=== PATIENT | male | born 1975 | race African-American/Black ===

== ENCOUNTER 2017-03-12 10:51 | Emergency (ER) | payer MEDICARE, MEDICAID ==
[~2017-03-12] VITALS: Ht 182.9 cm; Wt 140.5 kg
[~2017-03-12 10:51] MED LIST: CALC667T PO; MIDO5 PO; OMEP20TA PO
[2017-03-12 10:53] VITALS: BP 118/83; PULSE 95; RESP 18; TEMP 98.2; O2SAT 95
--- NOTE | 2017-03-12 11:26 | PD ---
HPI Chief Complaint: Pain: Acute or Chronic Time Seen by Provider: 11:26 Travel History International Travel<30 days: No Contact w/Intl Traveler<30days: No Traveled to known affect area: No History of Present Illness HPI 41-year-old male with a history of ESRD presents to the emergency department for evaluation of right hand third finger pain for 3 weeks. Patient states that 3 weeks ago he was waving his hands around animatedly speaking when he accidentally banged his 4 fingers on a table. States since then he has had pain and mild swelling in the right third finger PIP joint. States it is a burning pain. States last week he was seen at an urgent care 1 week ago and had an x-ray and was placed on Keflex. States he has 1 more day of his Keflex. States his swelling has improved but he is still having some burning pain in the right third finger PIP joint. Denies fever, chills, numbness or tingling, weakness. No other complaints. PFSH Past Medical History Arthritis: No Asthma: No Atrial Fibrillation: Yes Autoimmune Disease: No Blood Disorders: No Anxiety: No Depression: Yes Heart Rhythm Problems: Yes Cancer: No Cardiovascular Problems: No High Cholesterol: No Chemotherapy: No Chest Pain: No Congestive Heart Failure: Yes COPD: No Cerebrovascular Accident: No Diabetes: No Dialysis: Yes (HEMODIALYSIS ON SAT/SAT/SAT) Diminished Hearing: No Endocrine: No GERD: No Glaucoma: No Genitourinary: No Headaches: No Hepatitis: No Hiatal Hernia: No Hypertension: Yes Immune Disorder: No Kidney Stones: Yes Musculoskeletal: Yes (BACK PAIN) Neurologic: Yes (NERVE DAMAGE LEFT LEG) Psychiatric: No Reproductive: No Respiratory: No Immunizations Current: Yes Migraines: No Myocardial Infarction: No Radiation Therapy: No Renal Failure: No Seizures: No Sleep Apnea: Yes Thyroid Disease: No Ulcer: No Past Surgical History Abdominal Surgery: Yes (HX OF PERITONEAL CATH, RENAL TRANSPLANT WITH REMOVAL) AICD: No Appendectomy: No Arteriovenous Shunt: No Body Medical Devices: AV GRAFT LEFT ARM Cardiac Surgery: No Cholecystectomy: No Ear Surgery: No Endocrine Surgery: No Eye Surgery: No Genitourinary Surgery: Yes (LEFT KIDNEY TRANSPLANT AND REMOVAL) Gynecologic Surgery: No Insulin Pump: No Joint Replacement: No Neurologic Surgery: No Oral Surgery: No Pacemaker: No Thoracic Surgery: No Other Surgery: Yes (GRAFT X 2 LEFT FOREARM / FISTULA) Social History Alcohol Use: Yes (OCCASIONAL) Tobacco Use: No Substance Use: No Allergies-Medications (Allergen,Severity, Reaction): Coded Allergies: No Known Allergies (Verified , 03/12/17) Reported Meds & Prescriptions Reported Meds & Active Scripts Active Review of Systems Except as stated in HPI: all other systems reviewed are Neg Physical Exam Narrative GENERAL: Well-nourished and well-developed pleasant patient in no acute distress who is nontoxic appearing. SKIN: Warm and dry. HEAD: Normocephalic and atraumatic. EYES: No injection, drainage, or hyphema noted. PERRLA. EOMI. ENT: No nasal drainage noted. Oropharynx is clear. NECK: Supple and the trachea is midline. CARDIOVASCULAR: Regular rate and rhythm. RESPIRATORY: Breath sounds are equal bilaterally with no accessory muscle use, wheezing, rhonchi, or crackles. EXTREMITY: Right hand third finger with tenderness to palpation over the PIP joint, decreased range of motion in this joint, no erythema, no warmth. Full range of motion in all other joints. No joint swelling/injury. Normal opposition of thumb. Distal extremity neurovascularly intact with intact two point discrimination. Radial and ulnar pulses palpable in right wrist. NEUROLOGICAL: Awake, alert, and oriented. Normal speech and gait. Cranial nerves are grossly intact. Data Data Last Documented VS Vital Signs Date Time Temp Pulse Resp B/P Pulse Ox O2 Delivery O2 Flow Rate FiO2 03/12/17 10:53 98.2 95 18 118/83 95 Room Air Orders Hand, Complete ([id number]) (03/12/17 11:28) [facility] Medical Decision Making Medical Screen Exam Complete: Yes Emergency Medical Condition: Yes Differential Diagnosis Osteoarthritis versus sprain versus tendon injury versus jammed finger versus other Narrative Course 41-year-old male presents to the emergency department for evaluation of right hand third finger pain for 3 weeks. Patient is afebrile, vital signs are stable. The examination of the right third finger shows decreased range of motion and tenderness but no evidence for infection. We'll do an x-ray and if this is unremarkable the patient can follow-up as an outpatient with hand specialist. X-ray of the right hand is unremarkable. Patient is advised to follow-up as an outpatient with a hand specialist. Patient verbalizes understanding and agreement with treatment plan. Diagnosis Primary Impression: Finger pain, right Referrals: Hand Surgeon Patient Instructions: General Instructions Additional Instructions: Take [id number] tylenol as directed on the box as needed for pain. Follow-up with a hand specialist. Return to the ED for any acute worsening of symptoms. Med/Other Pt SpecificInfo: No Change to Meds Disposition: 01 DISCHARGE HOME Condition: Stable Gaby Pope Mar 12, 2017 11:26
--- NOTE | 2017-03-12 11:56 | RADRPT ---
EXAM DATE/TIME: 03/12/2017 11:23 [facility] COMPARISON: No previous studies available for comparison. INDICATIONS : Right hand pain in third and fifth digit. Patient states he injured his hand by hitting it on a pole. Lacerations on anterior side of third digit with swelling, pain, and burning. MEDICAL HISTORY : None. SURGICAL HISTORY : None. ENCOUNTER: Initial ACUITY: 3 weeks PAIN SCORE: 6/10 LOCATION: Right hand. FINDINGS: Three view examination of the right hand demonstrates no soft tissue swelling, dislocation, or fractu re. The carpal bones appear intact. The interphalangeal and metacarpophalangeal joints are intact. Bony mineralization is normal. Prominent radial and ulnar artery calcifications. CONCLUSION: Prominent vascular calcifications. Romel Charles MD on March 12, 2017 at 11:53 Board Certified Radiologist. This report was verified electronically.
== END 2017-03-12 13:20 | disposition home or self-care (01) ==
LOC: NEPD 10:51
DX: M25.541 Pain in joints of right hand (principal); I48.91 Unspecified atrial fibrillation; I50.9 Heart failure, unspecified; Z99.2 Dependence on renal dialysis; T86.12 Kidney transplant failure; I12.9 Hypertensive chronic kidney disease with stage 1 through stage 4 chronic kidney disease, or unspecified chronic kidney disease; N18.9 Chronic kidney disease, unspecified
CPT/HCPCS: 73130; 99283

== ENCOUNTER 2017-03-21 12:25 | Day surgery (SDC) | payer MEDICARE, MEDICAID ==
[~2017-03-21] VITALS: Ht 182.9 cm; Wt 137.8 kg
[~2017-03-21 12:25] MED LIST changes: -CALC667T PO; +CISATRACURIUM BESYLATE 20 MG/10 ML VIAL IV ONE; -MIDO5 PO; +NEOSTIGMINE 3 MG/3 ML SYR IV ONE; -OMEP20TA PO; +ONDANSETRON HCL 4 MG/2 ML VIAL IV PUSH ONE; +PHENYLEPH/NS 1000 MCG/10 ML SYR IV ONE; +SODIUM CHLOR 0.9% 250 ML INJ 250 ML IV ONE; +SODIUM CHLORID 0.9% 500 ML INJ 500 ML IV ONE
[2017-03-21] MEDS ORDERED: LORA-373 PO (13:06)
[2017-03-21] MEDS ORDERED: MIDO5TAB PO (13:06)
[2017-03-21] MEDS ORDERED: CALC0.5C6 PO (13:06)
[2017-03-21] MEDS ORDERED: CALC1CAP PO (13:06)
[2017-03-21 13:08] VITALS: BP 99/31; PULSE 93; RESP 20; TEMP 97.6; O2SAT 98
[2017-03-21] MEDS: SODIUM CHLORID 0.9% 500 ML IV PRN ×2 (13:10→19:53)
[2017-03-21] MEDS ORDERED: LACTATED RINGER'S 1000 ML IV PRN (13:30)
[2017-03-21] MEDS ORDERED: ceFAZolin 1,000 MG/NS 100 ML IV SCH ×2 (13:30)
[2017-03-21] MEDS ORDERED: CHLORHEXIDINE GLUCONATE 2 % 1 PACK (2 CLOTHS) TOPICAL PRN (13:30)
[2017-03-21] MEDS ORDERED: POVIDONE IODINE 5% (ANTISEPSIS KIT) 4 APPLICATIONS EACH NARE PRN (13:30)
[2017-03-21] MEDS ORDERED: METOPROLOL TARTRATE 25 MG TAB PO PRN (13:30)
[2017-03-21] MEDS ORDERED: INSULIN HUMAN REGULAR 1,000 UNITS/10 ML VIAL SQ PRN (13:30)
[2017-03-21 13:34] LABS: AUTOMATED NEUTROPHIL # 5.9 TH/MM3 (1.8-7.7); BASOPHIL % 0.5 % (0.0-2.0); EOSINOPHIL # 0.3 TH/MM3 (0-0.4); HEMATOCRIT 38.5 % (39.0-51.0); HEMO FLAGS DIFF FINAL; LYMPH % 18.2 % (9.0-44.0); LYMPHOCYTE # 1.5 TH/MM3 (1.0-4.8); MEAN CELL VOLUME 79.7 FL (80.0-100.0); MEAN CORPUSCULAR HEMOGLOBIN 24.9 PG (27.0-34.0); MEAN CORPUSCULAR HGB CONC 31.2 % (32.0-36.0); MONO % 7.8 % (0.0-8.0); NEUT % 69.5 % (16.0-70.0); PLATELET COUNT 207 TH/MM3 (150-450); RED BLOOD COUNT 4.83 MIL/MM3 (4.50-5.90); RED CELL DISTRIBUTION WIDTH 18.8 % (11.6-17.2); WHITE BLOOD COUNT 8.4 TH/MM3 (4.0-11.0)
[2017-03-21 14:03] LABS: BICARBONATE 26.6 MEQ/L (21.0-32.0); POTASSIUM 4.2 MEQ/L (3.5-5.1)
[2017-03-21] MEDS ORDERED: MIDAZOLAM HCL 2 MG/2 ML VIAL ONE (15:50)
[2017-03-21] MEDS ORDERED: FAMOTIDINE 20 MG/2 ML VIAL ONE (15:51)
[2017-03-21] MEDS ORDERED: HEPARIN SODIUM - SQ 10,000 UNITS/ML VIAL ONE (16:02)
[2017-03-21] MEDS ORDERED: BUPIVACAINE HCL PF 0.5% 30 ML VIAL ONE (16:02)
[2017-03-21] MEDS ORDERED: LIDOCAINE 1%/EPINEPHrine 1:100,000 SOLN 20 ML VIAL ONE ×2 (16:03→17:10)
[2017-03-21] MEDS ORDERED: HEPARIN SODIUM - IV 10,000 UNITS/10 ML VIAL ONE (17:10)
[2017-03-21] MEDS ORDERED: PROTAMINE SULFATE 50 MG/5 ML VIAL ONE (17:10)
[2017-03-21] MEDS ORDERED: MORPHINE SULFATE 4 MG/ML INJ ONE (19:45)
[2017-03-21] MEDS ORDERED: DO NOT ADM ANY ANTICOAGULANT DRUGS PRN (20:00)
[2017-03-21] MEDS ORDERED: SODIUM CHLORIDE 0.9% FLUSH 10 ML FLUSH IV FLUSH PRN (20:15)
[2017-03-21] MEDS ORDERED: POTASSIUM CHLOR 20 MEQ 100 ML x 2 BAGS IV PRN (20:15)
[2017-03-21] MEDS ORDERED: MAGNESIUM SULFATE 1 GM/100 ML IV PRN (20:15)
[2017-03-21] MEDS ORDERED: POTASSIUM CHLOR 20 MEQ/100 ML x 1 BAG IV PRN (20:15)
[2017-03-21] MEDS ORDERED: LORazepam 0.5 MG TAB PO PRN (20:15)
[2017-03-21] MEDS ORDERED: POTASSIUM PHOSPHATE 21 MMOL/NS 250 ML IV PRN ×2 (20:15)
[2017-03-21] MEDS ORDERED: ONDANSETRON HCL 4 MG/2 ML VIAL IV PUSH PRN (20:15)
[2017-03-21] MEDS ORDERED: ACETAMINOPHEN/HYDROcodone 325 MG/5 MG TAB PO PRN (20:15)
[2017-03-21] MEDS: SODIUM CHLORIDE 0.9% FLUSH 10 ML FLUSH IV FLUSH SCH (20:56)
[2017-03-21 21:00] VITALS: BP 95/53; PULSE 85; PULSE 86; RESP 18; TEMP 97.4; O2SAT 100
[2017-03-21 22:00] VITALS: PULSE 86
[2017-03-21 23:00] VITALS: PULSE 90
[2017-03-21] MEDS: MORPHINE SULFATE 8 MG/ML INJ IV PUSH PRN (23:15)
[2017-03-22] VITALS (13 sets, daily range): BP systolic 104–125; BP diastolic 48–73; PULSE 79–90; RESP 18–22; TEMP 97.6–98.3; O2SAT 92–99
[2017-03-22] MEDS: MORPHINE SULFATE 8 MG/ML INJ IV PUSH PRN ×2 (03:47→05:40)
[2017-03-22] MEDS: SODIUM CHLORIDE 0.9% FLUSH 10 ML FLUSH IV FLUSH SCH (09:05)
[2017-03-22] MEDS: MIDODRINE 5 MG TAB PO SCH ×2 (09:05→12:31)
--- NOTE | 2017-03-22 17:46 | MP ---
cc: JASS NIX DATE OF SURGERY 03/21/17 PREOPERATIVE DIAGNOSIS Steel ischemia right hand status post right brachial basilic AV fistula creation. POSTOPERATIVE DIAGNOSIS Steel ischemia right hand status post right brachial basilic AV fistula creation. OPERATIVE PROCEDURE Distal revascularization and interval ligation right brachial basilic AV fistula. [place] left greater saphenous vein. SURGEON Laura Nix MD SNOWBOARD INSTRUCTOR JOSE Baxter ANESTHESIA General endotracheal DESCRIPTION OF PROCEDURE With the patient in the supine position and under general endotracheal anesthesia, the left groin, thigh and right upper extremity were prepped with Betadine and draped in a sterile fashion. Appropriate IV antibiotic prophylaxis was administered and, following a protocol time-out, the skin and subcutaneous tissue overlying proximal left greater saphenous vein infiltrated with 1% Xylocaine with epinephrine. A vertical incision was performed along the course of the greater saphenous vein. The vein was isolated from the saphenofemoral junction distally for approximately 8 cm, ligated proximally and distally with 4-0 silk ligatures and divided between ligatures. Skin and subcutaneous tissue proximal and distal proximal and distal to the right brachial basilic AV fistula was infiltrated with 1% Xylocaine with epinephrine. The existing brachial basilic AV fistula scar was re-incised. The brachial artery was mobilized proximal and distal to the existing brachial basilic AV fistula anastomosis and encircled with double loop vessel loops. The artery was occluded distal to the basilic anastomosis, a vertical 4-mm arteriotomy performed along the anteromedial surface and the artery flushed proximally and distally with heparinized saline. The vein graft was reversed, spatulated on end and anastomosed end-to-side to the arteriotomy with continuous 7-0 Prolene. The occluding double loop vessel loops were released reestablishing pulsatile flow within the brachial artery. The brachial artery was occluded proximal to the basilic vein anastomosis. A vertical 4-mm arteriotomy was performed and the artery and fistula regionally heparinized. The vein was spatulated on end and anastomosed end-to-side to the arteriotomy with continuous 7-0 Prolene. The occluding Yasargil clips and double loop vessel loops were removed reestablishing pulsatile flow within the brachial artery as well as into the basilic fistula. The brachial artery was then ligated immediately distal to the basilic vein anastomosis with 4-0 silk. Significant augmentation of Doppler flow within the radial artery was confirmed following the drill procedure. Strict hemostasis was assured. The saphenous vein harvest and right upper extremity incisions were closed with continuous subcutaneous 4-0 Monocryl, continuous subcuticular 5-0 Monocryl, reinforced with Steri-Strips and covered with sterile gauze. Instrument, needle, sponge count correct x2. No operative complications. The patient returned to the recovery room in stable condition having tolerated procedure well. MD SUN Shell/ /10:39 AM /5:41 PM
--- NOTE | 2017-03-23 11:13 | EKG ---
Date Performed: 03/21/2017 Time Performed: 13:32:07 PTAGE: 41 years EKG: Sinus rhythm NORMAL ECG PREVIOUS TRACING : 02/16/2016 05.08 DOCTOR: Ronan Kelley Interpretating Date/Time 03/23/2017 11:06:02
== END 2017-03-22 13:18 | disposition home or self-care (01) ==
LOC: HSDC 12:25 → HCIS 20:46 → HSDC 03-22 13:18
PROVIDERS: ATTEND Surgery Vascular Surgery
DX: T82.898A Other specified complication of vascular prosthetic devices, implants and grafts, initial encounter (principal); I12.0 Hypertensive chronic kidney disease with stage 5 chronic kidney disease or end stage renal disease; N18.6 End stage renal disease; I48.0 Paroxysmal atrial fibrillation; Q61.3 Polycystic kidney, unspecified; K21.9 Gastro-esophageal reflux disease without esophagitis
CPT/HCPCS: 01844; 36838; 80048; 82948; 85025; 93005; J0690; J1644; J2250; J2270; J2370; J2405; J2710; J7040; J7050; J2720

== ENCOUNTER 2017-07-31 17:55 | Emergency (ER) | payer MEDICARE, MEDICAID ==
[~2017-07-31] VITALS: Ht 182.9 cm; Wt 63.0 kg
[~2017-07-31 17:55] MED LIST changes: +CALC0.5C PO; +CALC1CAP PO; -CISATRACURIUM BESYLATE 20 MG/10 ML VIAL IV ONE; +LORA0.5T PO; +MIDO5TAB PO; -NEOSTIGMINE 3 MG/3 ML SYR IV ONE; -ONDANSETRON HCL 4 MG/2 ML VIAL IV PUSH ONE; -PHENYLEPH/NS 1000 MCG/10 ML SYR IV ONE; -SODIUM CHLOR 0.9% 250 ML INJ 250 ML IV ONE; -SODIUM CHLORID 0.9% 500 ML INJ 500 ML IV ONE
[2017-07-31 17:56] VITALS: BP 132/59; PULSE 96; RESP 20; TEMP 98.5; O2SAT 95
--- NOTE | 2017-07-31 18:27 | PD ---
HPI Chief Complaint: Dizziness Time Seen by Provider: 18:19 Travel History International Travel<30 days: No Contact w/Intl Traveler<30days: No Traveled to known affect area: No History of Present Illness HPI 42-year-old male patient with end-stage renal disease on hemodialysis with Dr. Misael Neves, last had dialysis yesterday, presents to the ER today for several days history of intermittent dizziness, states that he felt worse today, felt like he was going to pass out. He states his blood pressures become low. He has been having coughing, runny nose, and cold-like symptoms. He denies any fevers, vomiting, abdominal pain, chest pains, shortness of breath, or any other symptoms. Modifying Factors: None Associated Signs & Symptoms: Dizziness, low blood pressure, coughing Risk Factors: End-stage renal disease on dialysis PFSH Past Medical History Arthritis: No Asthma: No Atrial Fibrillation: Yes Autoimmune Disease: No Blood Disorders: No Anxiety: No Depression: Yes Heart Rhythm Problems: Yes Cancer: No Cardiovascular Problems: No High Cholesterol: No Chemotherapy: No Chest Pain: No Congestive Heart Failure: Yes COPD: No Cerebrovascular Accident: No Diabetes: No Dialysis: Yes (HEMODIALYSIS ON SAT/SAT/SAT) Diminished Hearing: No Endocrine: No GERD: No Glaucoma: No Genitourinary: No Headaches: No Hepatitis: No Hiatal Hernia: No Hypertension: Yes Immune Disorder: No Kidney Stones: Yes Musculoskeletal: Yes (BACK PAIN) Neurologic: Yes (NERVE DAMAGE LEFT LEG) Psychiatric: No Reproductive: No Respiratory: No Immunizations Current: Yes Migraines: No Myocardial Infarction: No Radiation Therapy: No Renal Failure: No Seizures: No Sleep Apnea: Yes Thyroid Disease: Yes Ulcer: No Past Surgical History Abdominal Surgery: Yes (HX OF PERITONEAL CATH, RENAL TRANSPLANT WITH REMOVAL) AICD: No Appendectomy: No Arteriovenous Shunt: No Body Medical Devices: 3 old AV GRAFT Left arm fistula in right arm Cardiac Surgery: No Cholecystectomy: No Ear Surgery: No Endocrine Surgery: No Eye Surgery: No Genitourinary Surgery: Yes (LEFT KIDNEY TRANSPLANT AND REMOVAL) Gynecologic Surgery: No Insulin Pump: No Joint Replacement: No Neurologic Surgery: No Oral Surgery: No Pacemaker: No Thoracic Surgery: No Other Surgery: Yes (GRAFT X 2 LEFT FOREARM / FISTULA) Social History Alcohol Use: Yes (OCCASIONAL) Tobacco Use: No Substance Use: No Allergies-Medications (Allergen,Severity, Reaction): Coded Allergies: No Known Allergies (Verified , 03/12/17) Reported Meds & Prescriptions Reported Meds & Active Scripts Active Reported Lorazepam 0.5 Mg Tab 0.5 Mg PO DAILY PRN Calcitriol 0.5 Mcg Cap 5 Tab PO BID Midodrine 5 Mg Tab 5 Mg PO TID Calcium Acetate (Phosphate Binder) 667 Mg Cap 2,400 Mg PO TID Review of Systems Except as stated in HPI: all other systems reviewed are Neg Physical Exam Narrative GENERAL: Well-developed middle age -Chinese male patient currently in mild distress at awake and oriented 3. SKIN: Focused skin assessment warm/dry. HEAD: Atraumatic. Normocephalic. EYES: Pupils equal and round. No scleral icterus. No injection or drainage. ENT: No nasal bleeding or discharge. Mucous membranes pink and moist. NECK: Trachea midline. No JVD. CARDIOVASCULAR: Regular rate and rhythm. No murmur appreciated. RESPIRATORY: No accessory muscle use. Clear to auscultation. Breath sounds equal bilaterally. GASTROINTESTINAL: Abdomen soft, non-tender, nondistended. Hepatic and splenic margins not palpable. MUSCULOSKELETAL: No obvious deformities. No clubbing. No cyanosis. No edema. NEUROLOGICAL: Awake and alert. No obvious cranial nerve deficits. Motor grossly within normal limits. Normal speech. PSYCHIATRIC: Appropriate mood and affect; insight and judgment normal. Data Data Last Documented VS Vital Signs Date Time Temp Pulse Resp B/P (MAP) Pulse Ox O2 Delivery O2 Flow Rate FiO2 07/31/17 17:56 98.5 96 20 132/59 (83) 95 Room Air Orders Orders Electrocardiogram (07/31/17 18:19) Complete Blood Count With Diff (07/31/17 18:19) Comprehensive Metabolic Panel (07/31/17 18:19) B-Type Natriuretic Peptide (07/31/17 18:19) Ckmb (Isoenzyme) Profile (07/31/17 18:19) Troponin I (07/31/17 18:19) Act Partial Throm Time (Ptt) (07/31/17 18:19) Prothrombin Time / Inr (Pt) (07/31/17 18:19) Urinalysis - C+S If Indicated (07/31/17 18:19) Chest, Single Ap (07/31/17 18:19) Ecg Monitoring (07/31/17 18:19) Iv Access Insert/Monitor (07/31/17 18:19) Oximetry (07/31/17 18:19) Sodium Chloride 0.9% Flush (Ns Flush) (07/31/17 18:30) Blood Culture (07/31/17 18:19) Labs Laboratory Tests Test 07/31/17 18:38 [facility] Medical Decision Making Medical Screen Exam Complete: Yes Emergency Medical Condition: Yes Medical Record Reviewed: Yes Interpretation(s) Last 24 hours Impressions Chest X-Ray 07/31/171818 Signed Impressions: Service Date/Time: Saturday, July 31, 2017 18:30 - CONCLUSION: The lungs are clear. Derian Rao MD Laboratory Tests Test 07/31/17 18:38 Differential Diagnosis URI/viral syndrome/influenza versus dehydration versus metabolic issues versus sepsis versus pneumonia Narrative Course Chest x-ray did not show any signs of acute processes. Lab work was ordered for further evaluation. Physician Communication Physician Communication Case is signed out to Dr. Triana at 7 PM pending workup. Disposition based on workup. Diagnosis Primary Impression: Near syncope Rufino Alvarado MD Jul 31, 2017 18:27
[2017-07-31] MEDS ORDERED: SODIUM CHLORIDE 0.9% FLUSH 10 ML FLUSH IVF PRN (18:30)
--- NOTE | 2017-07-31 18:41 | RADRPT ---
EXAM DATE/TIME: 07/31/2017 18:30 [facility] COMPARISON: CHEST SINGLE AP, February 16, 2016, 5:35. INDICATIONS : Cough, congestion for 1 week. MEDICAL HISTORY : None. SURGICAL HISTORY : None. ENCOUNTER: Initial ACUITY: 1 week PAIN SCORE: 0/10 LOCATION: Bilateral chest FINDINGS: A single view of the chest demonstrates the lungs to be symmetrically aerated without evidence of mas s, infiltrate or effusion. The cardiomediastinal contours are unremarkable. Osseous structures are intact. CONCLUSION: The lungs are clear. Derian Rao MD on July 31, 2017 at 18:39 Board Certified Radiologist. This report was verified electronically.
[2017-07-31 19:10] LABS: AUTOMATED NEUTROPHIL # 8.5 TH/MM3 (1.8-7.7); BASOPHIL # 0.1 TH/MM3 (0-0.2); BASOPHIL % 0.6 % (0.0-2.0); EOSINOPHIL # 0.7 TH/MM3 (0-0.4); EOSINOPHIL % 5.9 % (0.0-4.0); HEMATOCRIT 38.8 % (39.0-51.0); HEMO FLAGS DIFF FINAL; LYMPH % 15.8 % (9.0-44.0); LYMPHOCYTE # 1.9 TH/MM3 (1.0-4.8); MEAN CELL VOLUME 82.6 FL (80.0-100.0); MEAN CORPUSCULAR HEMOGLOBIN 26.2 PG (27.0-34.0); MEAN CORPUSCULAR HGB CONC 31.8 % (32.0-36.0); MONO % 6.1 % (0.0-8.0); NEUT % 71.6 % (16.0-70.0); PLATELET COUNT 229 TH/MM3 (150-450); RED CELL DISTRIBUTION WIDTH 17.8 % (11.6-17.2); WHITE BLOOD COUNT 11.8 TH/MM3 (4.0-11.0)
[2017-07-31 19:22] LABS: APTT (PATIENT) 27.4 SEC (24.3-30.1)
[2017-07-31 20:04] LABS: ALKALINE PHOSPHATASE 73 U/L (45-117); ALT (GPT) 18 U/L (12-78); ANION GAP 12 MEQ/L (5-15); AST (GOT) 14 U/L (15-37); BICARBONATE 26.7 MEQ/L (21.0-32.0); BLOOD UREA NITROGEN 51 MG/DL (7-18); CHLORIDE 94 MEQ/L (98-107); CREATINE KINASE 365 U/L (39-308); GLOMERULAR FILTRATION RATE 5 ML/MIN (>89); POTASSIUM 4.3 MEQ/L (3.5-5.1); SODIUM (NA) 133 MEQ/L (136-145); TOTAL BILIRUBIN ADULT 0.3 MG/DL (0.2-1.0)
[2017-07-31 20:24] LABS: CKMB 1.4 NG/ML (0.5-3.6)
[2017-07-31] MEDS ORDERED: CALCIUM GLUCONATE INJ 1 GM in DEXTROSE 5% IN WATER 100ML INJ 100 ML IV ONE ×2 (21:30)
[2017-07-31] MEDS ORDERED: CALCIUM CARBONATE 500 MG CHEWABLE TAB CHEW ONE (21:30)
--- NOTE | 2017-07-31 21:41 | PD ---
Physical Exam Date Seen by Provider: Jul 31, 2017 Time Seen by Provider: 21:35 Narrative Accepted in transfer of care from Dr Alvarado Data Data Last Documented VS Vital Signs Date Time Temp Pulse Resp B/P (MAP) Pulse Ox O2 Delivery O2 Flow Rate FiO2 07/31/17 17:56 98.5 96 20 132/59 (83) 95 Room Air Orders Orders Electrocardiogram (07/31/17 18:19) Complete Blood Count With Diff (07/31/17 18:19) Comprehensive Metabolic Panel (07/31/17 18:19) B-Type Natriuretic Peptide (07/31/17 18:19) Ckmb (Isoenzyme) Profile (07/31/17 18:19) Troponin I (07/31/17 18:19) Act Partial Throm Time (Ptt) (07/31/17 18:19) Prothrombin Time / Inr (Pt) (07/31/17 18:19) Urinalysis - C+S If Indicated (07/31/17 18:19) Chest, Single Ap (07/31/17 18:19) Ecg Monitoring (07/31/17 18:19) Iv Access Insert/Monitor (07/31/17 18:19) Oximetry (07/31/17 18:19) Sodium Chloride 0.9% Flush (Ns Flush) (07/31/17 18:30) Blood Culture (07/31/17 18:19) CKMB (07/31/17 18:38) CKMB% (07/31/17 18:38) Calcium Gluconate Inj (Calcium Gluconate (07/31/17 21:30) Calcium Carbonate Chew (Tums Chew) (07/31/17 21:30) Labs Laboratory Tests Test 07/31/17 18:38 White Blood Count 11.8 TH/MM3 Red Blood Count 4.70 MIL/MM3 Hemoglobin 12.3 GM/DL Hematocrit 38.8 % Mean Corpuscular Volume 82.6 FL Mean Corpuscular Hemoglobin 26.2 PG Mean Corpuscular Hemoglobin Concent 31.8 % Red Cell Distribution Width 17.8 % Platelet Count 229 TH/MM3 Mean Platelet Volume 8.0 FL Neutrophils (%) (Auto) 71.6 % Lymphocytes (%) (Auto) 15.8 % Monocytes (%) (Auto) 6.1 % Eosinophils (%) (Auto) 5.9 % Basophils (%) (Auto) 0.6 % Neutrophils # (Auto) 8.5 TH/MM3 Lymphocytes # (Auto) 1.9 TH/MM3 Monocytes # (Auto) 0.7 TH/MM3 Eosinophils # (Auto) 0.7 TH/MM3 Basophils # (Auto) 0.1 TH/MM3 CBC Comment DIFF FINAL Differential Comment Prothrombin Time 11.0 SEC Prothromb Time International Ratio 1.0 RATIO Activated Partial Thromboplast Time 27.4 SEC Blood Urea Nitrogen 51 MG/DL Creatinine 12.95 MG/DL Random Glucose 95 MG/DL Total Protein 9.5 GM/DL Albumin 3.4 GM/DL Calcium Level 6.7 MG/DL Alkaline Phosphatase 73 U/L Aspartate Amino Transf (AST/SGOT) 14 U/L Alanine Aminotransferase (ALT/SGPT) 18 U/L Total Bilirubin 0.3 MG/DL Sodium Level 133 MEQ/L Potassium Level 4.3 MEQ/L Chloride Level 94 MEQ/L Carbon Dioxide Level 26.7 MEQ/L Anion Gap 12 MEQ/L Estimat Glomerular Filtration Rate 5 ML/MIN Protein Corrected Calcium MG/DL Total Creatine Kinase 365 U/L Creatine Kinase MB 1.4 NG/ML Creatine Kinase MB % 0.4 % Troponin I LESS THAN 0.02 NG/ML B-Type Natriuretic Peptide 20 PG/ML MDM Medical Record Reviewed: Yes Supervised Visit with VITO: No Interpretation(s) Last Impressions Chest X-Ray 07/31/171818 Signed Impressions: Service Date/Time: Monday, July 31, 2017 18:30 - CONCLUSION: The lungs are clear. Derian Rao MD CBC & BMP Diagram 07/31/17 18:38 Total Protein 9.5 H, Albumin 3.4, Calcium Level 6.7 *L, Alkaline Phosphatase 73 , Aspartate Amino Transf (AST/SGOT) 14 L, Alanine Aminotransferase (ALT/SGPT) 18 , Total Bilirubin 0.3 Vital Signs Date Time Temp Pulse Resp B/P (MAP) Pulse Ox O2 Delivery O2 Flow Rate FiO2 07/31/17 17:56 98.5 96 20 132/59 (83) 95 Room Air Troponin I less than 0.02, not elevated; BNP: 20, not elevated; CK total mildly elevated 345 but MB percent is not elevated at 0.4% Differential Diagnosis Accepted in transfer of care from Dr Alvarado; please refer to her dictation Narrative Course Accepted in transfer of care from Dr Alvarado; follow up labs and disposition Labs grossly within normal range and at patient's baseline except for hypocalcemia; vital signs stable; patient feeling well and voicing no concerns or complaints; patient's lab values discussed with patient in detail with spouse at bedside Patient is aware his lab values and presentation have been discussed with Dr. Brower, covering for his jewelry sorter Dr. Neves per Dr. Brower, recommends patient receive a one-time dose of calcium gluconate IV as well as Derian 1000 mg prior to being discharge and patient will need to follow closely with his jewelry sorter as well as continue his dialysis as scheduled and make sure that he definitely takes his calcium replacement It is 9:40 PM patient is stable for outpatient management after receiving calcium replacement and again extensive conversation with patient with spouse at bedside regarding compliance with his outpatient calcium replacement. Patient understands recommendations and is requesting discharge to home. Diagnosis Primary Impression: Near syncope Additional Impression: Hypocalcemia Referrals: Electromechanical Equipment Assembler 1 day Primary Care Physician 1 day Patient Instructions: General Instructions Additional Instruction: Follow-up with Dr. Neves as scheduled Continue dialysis as planned Make sure you take calcium replacement as prescribed Return to the emergency for for any concerns or change in condition Med/Other Pt SpecificInfo: No Change to Meds Disposition: 01 DISCHARGE HOME Condition: Stable Liliam Triana MD Jul 31, 2017 21:41
--- NOTE | 2017-08-01 10:35 | EKG ---
Date Performed: 07/31/2017 Time Performed: 18:47:29 PTAGE: 42 years EKG: Sinus rhythm LOW QRS VOLTAGE IN EXTREMITY LEADS BORDERLINE ECG NO PREVIOUS TRACING DOCTOR: Hunter Morris Interpretating Date/Time 08/01/2017 10:34:55
== END 2017-07-31 23:42 | disposition home or self-care (01) ==
LOC: NEPC 17:55
DX: R55 Syncope and collapse (principal); E83.51 Hypocalcemia; I13.2 Hypertensive heart and chronic kidney disease with heart failure and with stage 5 chronic kidney disease, or end stage renal disease; I50.9 Heart failure, unspecified; N18.6 End stage renal disease; Z99.2 Dependence on renal dialysis
CPT/HCPCS: 71010; 80053; 82550; 82552; 83880; 84484; 85025; 85610; 85730; 87040; 93005; 96365; 99285; J0610

== ENCOUNTER 2017-12-04 19:30 | Inpatient (IN) | payer MEDICARE, MEDICAID ==
[~2017-12-04] VITALS: Ht 182.9 cm; Wt 150.0 kg
[2017-12-04 20:06] VITALS: BP 137/61; PULSE 102; RESP 18; TEMP 99.3; O2SAT 97
--- NOTE | 2017-12-04 23:49 | PD ---
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 He comes in because he is having dark melena-like stool for the last few days. He said a few years ago he had blood from the rectum and return colonoscopy was done as an outpatient and they found that he had diverticuli . patient now reports mild epigastric pain and heartburn off and on for the last few days. He does take omeprazole daily without relief of the pain and his stool is black per patient. He is morbidly obese end-stage renal, renal failure congential per pt no DM Pt has history of diverticuli ,, Now pt coming in with black stools that are tarry. pt denies orthopnea no syncope no SOB , PFSH Past Medical History Arthritis: No Asthma: No Atrial Fibrillation: Yes Autoimmune Disease: No Blood Disorders: No Anxiety: No Depression: Yes Heart Rhythm Problems: Yes Cancer: No Cardiovascular Problems: No High Cholesterol: No Chemotherapy: No Chest Pain: No Congestive Heart Failure: Yes COPD: No Cerebrovascular Accident: No Diabetes: No Dialysis: Yes (HEMODIALYSIS ON SAT/SAT/SAT) Diminished Hearing: No Endocrine: No GERD: No Glaucoma: No Genitourinary: No Headaches: No Hepatitis: No Hiatal Hernia: No Hypertension: Yes Immune Disorder: No Kidney Stones: Yes Musculoskeletal: Yes (BACK PAIN) Neurologic: Yes (NERVE DAMAGE LEFT LEG) Psychiatric: No Reproductive: No Respiratory: No Immunizations Current: Yes Migraines: No Myocardial Infarction: No Radiation Therapy: No Renal Failure: No Seizures: No Sleep Apnea: Yes Thyroid Disease: Yes Ulcer: No Past Surgical History Abdominal Surgery: Yes (HX OF PERITONEAL CATH, RENAL TRANSPLANT WITH REMOVAL) AICD: No Appendectomy: No Arteriovenous Shunt: No Body Medical Devices: 3 old AV GRAFT Left arm fistula in right arm Cardiac Surgery: No Cholecystectomy: No Ear Surgery: No Endocrine Surgery: No Eye Surgery: No Genitourinary Surgery: Yes (LEFT KIDNEY TRANSPLANT AND REMOVAL) Gynecologic Surgery: No Insulin Pump: No Joint Replacement: No Neurologic Surgery: No Oral Surgery: No Pacemaker: No Thoracic Surgery: No Other Surgery: Yes (GRAFT X 2 LEFT FOREARM / FISTULA) Social History Alcohol Use: Yes (OCCASIONAL) Tobacco Use: No Substance Use: No Allergies-Medications (Allergen,Severity, Reaction): Coded Allergies: No Known Allergies (Verified Allergy, Unknown, 12/05/17) Reported Meds & Prescriptions Reported Meds & Active Scripts Active Reported Lorazepam 0.5 Mg Tab 0.5 Mg PO DAILY PRN Calcitriol 0.5 Mcg Cap 5 Tab PO BID Midodrine 5 Mg Tab 5 Mg PO TID Calcium Acetate (Phosphate Binder) 667 Mg Cap 2,400 Mg PO TID Review of Systems Except as stated in HPI: all other systems reviewed are Neg Gastrointestinal: Positive: Abdominal Pain, Changes in Bowel Habits (melena ) Physical Exam Narrative GENERAL: Pt is morbidly obese , pt alert OX3 , no distress SKIN: Warm and dry. HEAD: Atraumatic. Normocephalic. EYES: Pupils equal and round. No scleral icterus. No injection or drainage. ENT: No nasal bleeding or discharge. Mucous membranes pink and moist. NECK: Trachea midline. No JVD. CARDIOVASCULAR: Regular rate and rhythm. RESPIRATORY: No accessory muscle use. Clear to auscultation. Breath sounds equal bilaterally. GASTROINTESTINAL: Abdomen obese, soft, non-tender, nondistended. Hepatic and splenic margins not palpable. RECTAL dark stool guaiac positive MUSCULOSKELETAL: Extremities AV fistula in right humeral area volar surface ....without clubbing, cyanosis, or edema. No obvious deformities. NEUROLOGICAL: Awake and alert. No obvious cranial nerve deficits. Motor grossly within normal limits. Five out of 5 muscle strength in the arms and legs. Normal speech. PSYCHIATRIC: Appropriate mood and affect; insight and judgment normal. Data Data Last Documented VS Vital Signs Date Time Temp Pulse Resp B/P (MAP) Pulse Ox O2 Delivery O2 Flow Rate FiO2 12/05/17 02:31 89 18 122/55 (77) 95 12/04/17 20:06 99.3 Orders Orders Complete Blood Count With Diff (12/04/17 23:27) Comprehensive Metabolic Panel (12/04/17 23:27) Type And Screen (12/04/17 23:27) Prothrombin Time / Inr (Pt) (12/04/17 23:28) Pantoprazole Inj (Protonix Inj) (12/05/17 02:00) Famotidine Inj (Pepcid Inj) (12/05/17 02:00) Place In Observation (12/05/17 ) Vital Signs (Adult) Q4H (12/05/17 03:16) Activity Oob Ad Sylvia (12/05/17 03:16) Horologist Apprentice / Telemetry .CONTINUOUS (12/05/17 03:16) Intake + Output MANDEEP.QSHIFT (12/05/17 03:16) Sodium Chlor 0.9% 1000 Ml Inj (Ns 1000 M (12/05/17 03:16) Sodium Chloride 0.9% Flush (Ns Flush) (12/05/17 03:30) Sodium Chloride 0.9% Flush (Ns Flush) (12/05/17 09:00) Ondansetron Inj (Zofran Inj) (12/05/17 03:30) Basic Metabolic Panel (Bmp) (12/06/17 06:00) Complete Blood Count With Diff (12/06/17 06:00) Pt Request For Service (12/05/17 03:16) Case Management Consult (12/05/17 03:16) Scd Bilateral/Knee High MANDEEP.BID (12/05/17 03:16) Naloxone Inj (Narcan Inj) (12/05/17 03:30) Hgb & Hct (12/05/17 06:00) Hgb & Hct (12/05/17 12:00) Hgb & Hct (12/05/17 18:00) Pantoprazole Inj (Protonix Inj) (12/05/17 14:00) Calcium Gluconate Inj (Calcium Gluconate (12/05/17 03:30) Consult Gastroenterology (12/05/17 ) Admit Order (Ed Use Only) (12/05/17 04:05) Labs Laboratory Tests Test 12/04/17 23:34 White Blood Count 8.6 TH/MM3 Red Blood Count 3.53 MIL/MM3 Hemoglobin 9.0 GM/DL Hematocrit 28.7 % Mean Corpuscular Volume 81.3 FL Mean Corpuscular Hemoglobin 25.5 PG Mean Corpuscular Hemoglobin Concent 31.4 % Red Cell Distribution Width 17.4 % Platelet Count 274 TH/MM3 Mean Platelet Volume 7.8 FL Neutrophils (%) (Auto) 77.6 % Lymphocytes (%) (Auto) 11.1 % Monocytes (%) (Auto) 6.9 % Eosinophils (%) (Auto) 3.9 % Basophils (%) (Auto) 0.5 % Neutrophils # (Auto) 6.7 TH/MM3 Lymphocytes # (Auto) 1.0 TH/MM3 Monocytes # (Auto) 0.6 TH/MM3 Eosinophils # (Auto) 0.3 TH/MM3 Basophils # (Auto) 0.0 TH/MM3 CBC Comment DIFF FINAL Differential Comment Prothrombin Time 10.6 SEC Prothromb Time International Ratio 1.0 RATIO Blood Urea Nitrogen 30 MG/DL Creatinine 9.83 MG/DL Random Glucose 109 MG/DL Total Protein 8.7 GM/DL Albumin 3.5 GM/DL Calcium Level 7.3 MG/DL Alkaline Phosphatase 65 U/L Aspartate Amino Transf (AST/SGOT) 22 U/L Alanine Aminotransferase (ALT/SGPT) 17 U/L Total Bilirubin 0.3 MG/DL Sodium Level 136 MEQ/L Potassium Level 4.3 MEQ/L Chloride Level 97 MEQ/L Carbon Dioxide Level 31.8 MEQ/L Anion Gap 7 MEQ/L Estimat Glomerular Filtration Rate 7 ML/MIN Protein Corrected Calcium MG/DL [facility] Medical Decision Making Medical Screen Exam Complete: Yes Emergency Medical Condition: Yes Differential Diagnosis rectal bleeding from oozing gastric ulcer vs blood from colonic mass a/v malformation vs duodenal ulcer , other Narrative Course H and H and last Hematocrit few years ago was 38 pt needs admit for protonix drip and GI endoscopy in AM admit meds GI consult. Pt stable enough for admit to floor and close GI consult and EGD , BP on admission 120/56 HR 89 Diagnosis Primary Impression: GI bleed Qualified Codes: K92.1 - Melena Admitting Information Admitting Physician Requests: Admit Prasanth Bruno MD Dec 04, 2017 23:49
[2017-12-04 23:54] LABS: PROTHROMBIN TIME - PATIENT 10.6 SEC (9.8-11.6)
[2017-12-05] VITALS (10 sets, daily range): BP systolic 96–150; BP diastolic 44–68; PULSE 78–89; RESP 16–20; TEMP 97.4–98.3; O2SAT 94–100
[2017-12-05 00:05] LABS: AUTOMATED NEUTROPHIL # 6.7 TH/MM3 (1.8-7.7); BASOPHIL % 0.5 % (0.0-2.0); EOSINOPHIL # 0.3 TH/MM3 (0-0.4); EOSINOPHIL % 3.9 % (0.0-4.0); HEMATOCRIT 28.7 % (39.0-51.0); LYMPH % 11.1 % (9.0-44.0); MEAN CELL VOLUME 81.3 FL (80.0-100.0); MEAN CORPUSCULAR HEMOGLOBIN 25.5 PG (27.0-34.0); MEAN CORPUSCULAR HGB CONC 31.4 % (32.0-36.0); MEAN PLATELET VOLUME 7.8 FL (7.0-11.0); MONO % 6.9 % (0.0-8.0); MONOCYTE # 0.6 TH/MM3 (0-0.9); NEUT % 77.6 % (16.0-70.0); PLATELET COUNT 274 TH/MM3 (150-450); RED BLOOD COUNT 3.53 MIL/MM3 (4.50-5.90); RED CELL DISTRIBUTION WIDTH 17.4 % (11.6-17.2); WHITE BLOOD COUNT 8.6 TH/MM3 (4.0-11.0)
[2017-12-05 00:22] LABS: ALBUMIN 3.5 GM/DL (3.4-5.0); BICARBONATE 31.8 MEQ/L (21.0-32.0); CREATININE 9.83 MG/DL (0.60-1.30); TOTAL BILIRUBIN ADULT 0.3 MG/DL (0.2-1.0); TOTAL PROTEIN 8.7 GM/DL (6.4-8.2)
[2017-12-05 00:25] LABS: CALCIUM 7.3 MG/DL (8.5-10.1)
[2017-12-05] MEDS ORDERED: PANTOPRAZOLE SODIUM 40 MG VIAL IV PUSH ONE (02:00)
[2017-12-05] MEDS ORDERED: FAMOTIDINE 20 MG/2 ML VIAL IV PUSH SCH (02:00)
[2017-12-05] MEDS ORDERED: SODIUM CHLOR 0.9% 1000 ML INJ 1,000 ML IV SCH (03:16)
[2017-12-05] MEDS ORDERED: CALCIUM GLUCONATE INJ 1 GM in DEXTROSE 5% IN WATER 100ML INJ 100 ML IV ONE ×2 (03:30)
[2017-12-05] MEDS ORDERED: NALOXONE HCL 0.4 MG/ML AMP IV PUSH PRN (03:30)
[2017-12-05] MEDS ORDERED: ONDANSETRON HCL 4 MG/2 ML VIAL IVP PRN (03:30)
[2017-12-05] MEDS ORDERED: LORazepam 0.5 MG TAB PO PRN (04:45)
--- NOTE | 2017-12-05 05:19 | HHI.HP ---
[facility] Service [facility] Primary Care Physician Gary Mtz MD Admission Diagnosis GI bleed Diagnoses: Travel History International Travel<30 Days: No Contact w/Intl Traveler <30 Da: No Traveled to Known Affected Are: No History of Present Illness 42-year-old male with end-stage renal disease on dialysis, chronic back pain and neuropathy presents to the emergency department for evaluation of black stools. The patient reports that he has had black stools for approximately the last 1-1/2 months. He states that he has been having worsening fatigue 1 week. He denies any shortness of breath. No chest pain. The patient states he had something similar in the past, several years ago and he had an outpatient colonoscopy which did not reveal any source of bleeding. He was Hemoccult positive in the emergency department. No nausea/vomiting/diarrhea. No abdominal pain. No lateralizing signs/symptoms. Review of Systems Except as stated in HPI: all other systems reviewed are Neg Past Family Social History Past Medical History End-stage renal disease on dialysis Saturday Chronic back pain Neuropathy Past Surgical History Parathyroidectomy Kidney transplant with subsequent removal of transplanted kidney Fistula 4 Reported Medications Reported Meds & Active Scripts Active Reported Lorazepam 0.5 Mg Tab 0.5 Mg PO DAILY PRN Calcitriol 0.5 Mcg Cap 5 Tab PO BID Midodrine 5 Mg Tab 5 Mg PO TID Calcium Acetate (Phosphate Binder) 667 Mg Cap 2,400 Mg PO TID Allergies: Coded Allergies: No Known Allergies (Verified Allergy, Unknown, 12/05/17) Family History Negative for CAD/DM Social History Occasional alcohol. Denies tobacco and illicit drugs Physical Exam Vital Signs Vital Signs Date Time Temp Pulse Resp B/P (MAP) Pulse Ox O2 Delivery O2 Flow Rate FiO2 12/05/17 02:31 89 18 122/55 (77) 95 12/04/17 20:06 99.3 102 18 137/61 (86) 97 Physical Exam GENERAL: Obese, male lying in bed SKIN: No rashes, ecchymoses or lesions. Cool and dry. HEAD: Atraumatic. Normocephalic. No temporal or scalp tenderness. EYES: Pupils equal round and reactive. Extraocular motions intact. No scleral icterus. No injection or drainage. ENT: Nose without bleeding, purulent drainage or septal hematoma. Throat without erythema, tonsillar hypertrophy or exudate. Uvula midline. Airway patent. NECK: Trachea midline. No JVD or lymphadenopathy. Supple, nontender, no meningeal signs. CARDIOVASCULAR: Regular rate and rhythm without murmurs, gallops, or rubs. RESPIRATORY: Clear to auscultation. Breath sounds equal bilaterally. No wheezes , rales, or rhonchi. GASTROINTESTINAL: Abdomen soft, non-tender, nondistended. No hepato-splenomegaly , or palpable masses. No guarding. MUSCULOSKELETAL: Extremities without clubbing, cyanosis, or edema. No joint tenderness, effusion, or edema noted. No calf tenderness. NEUROLOGICAL: Awake and alert. Cranial nerves II through XII intact. Motor and sensory grossly within normal limits. Normal speech. Laboratory Laboratory Tests Test 12/04/17 23:34 White Blood Count 8.6 Red Blood Count 3.53 Hemoglobin 9.0 Hematocrit 28.7 Mean Corpuscular Volume 81.3 Mean Corpuscular Hemoglobin 25.5 Mean Corpuscular Hemoglobin Concent 31.4 Red Cell Distribution Width 17.4 Platelet Count 274 Mean Platelet Volume 7.8 Neutrophils (%) (Auto) 77.6 Lymphocytes (%) (Auto) 11.1 Monocytes (%) (Auto) 6.9 Eosinophils (%) (Auto) 3.9 Basophils (%) (Auto) 0.5 Neutrophils # (Auto) 6.7 Lymphocytes # (Auto) 1.0 Monocytes # (Auto) 0.6 Eosinophils # (Auto) 0.3 Basophils # (Auto) 0.0 CBC Comment DIFF FINAL Differential Comment Prothrombin Time 10.6 Prothromb Time International Ratio 1.0 Blood Urea Nitrogen 30 Creatinine 9.83 Random Glucose 109 Total Protein 8.7 Albumin 3.5 Calcium Level 7.3 Alkaline Phosphatase 65 Aspartate Amino Transf (AST/SGOT) 22 Alanine Aminotransferase (ALT/SGPT) 17 Total Bilirubin 0.3 Sodium Level 136 Potassium Level 4.3 Chloride Level 97 Carbon Dioxide Level 31.8 Anion Gap 7 Estimat Glomerular Filtration Rate 7 Protein Corrected Calcium Result Diagram: 12/04/17 2334 12/04/17 2334 Caprini VTE Risk Assessment Caprini VTE Risk Assessment: No/Low Risk (score <= 1) Caprini Risk Assessment Model Point Value = 1 Point Value = 2 Point Value = 3 Point Value = 5 Age 41-60 Minor surgery BMI > 25 kg/m2 Swollen legs Varicose veins or History of unexplained or recurrent spontaneous Oral contraceptives or hormone replacement Sepsis (< 1 month) Serious lung disease, including pneumonia (< 1 month) Abnormal pulmonary function Acute myocardial infarction Congestive heart failure (< 1 month) History of inflammatory bowel disease Medical patient at bed rest Age 61-74 Arthroscopic surgery Major open surgery (> 45 min) Laparoscopic surgery (> 45 min) Malignancy Confined to bed (> 72 hours) Immobilizing plaster cast Central venous access Age >= 75 History of VTE Family history of VTE Factor V Leiden Prothrombin [id number] Lupus anticoagulant Anticardiolipin antibodies Elevated serum homocysteine Heparin-induced thrombocytopenia Other congenital or acquired thrombophilia Stroke (< 1 month) Elective arthroplasty Hip, pelvis, or leg fracture Acute spinal cord injury (< 1 month) Prophylaxis Regimen Total Risk Factor Score Risk Level Prophylaxis Regimen 0-1 Low Early ambulation 2 Moderate Order ONE of the following: *Sequential Compression Device (SCD) *Heparin 5000 units SQ BID 3-4 Higher Order ONE of the following medications: *Heparin 5000 units SQ TID *Enoxaparin/Lovenox 40 mg SQ daily (WT < 150 kg, CrCl > 30 mL/min) *Enoxaparin/Lovenox 30 mg SQ daily (WT < 150 kg, CrCl > 10-29 mL/min) *Enoxaparin/Lovenox 30 mg SQ BID (WT < 150 kg, CrCl > 30 mL/min) AND/OR *Sequential Compression Device (SCD) 5 or more Highest Order ONE of the following medications: *Heparin 5000 units SQ TID (Preferred with Epidurals) *Enoxaparin/Lovenox 40 mg SQ daily (WT < 150 kg, CrCl > 30 mL/min) *Enoxaparin/Lovenox 30 mg SQ daily (WT < 150 kg, CrCl > 10-29 mL/min) *Enoxaparin/Lovenox 30 mg SQ BID (WT < 150 kg, CrCl > 30 mL/min) AND *Sequential Compression Device (SCD) Assessment and Plan Assessment and Plan Assessment/plan: 1. GI bleed Patient with history of dark, tarry stools H&H 9.0/28.7, baseline unknown Serial H&H IV Protonix Nothing by mouth Gastroenterology consulted, appreciate recommendations Transfuse as needed 2. End-stage renal disease on dialysis Dialysis [facility] Patient's cement rubber, Dr. Neves, consulted, appreciate assistance Continue home medications FEN NPO Electrolytes: per Nephrology Katelin Mccarthy MD Dec 05, 2017 05:19
[2017-12-05 07:35] LABS: HEMATOCRIT 26.7 % (39.0-51.0); HEMOGLOBIN 8.4 GM/DL (13.0-17.0)
[2017-12-05] MEDS: SODIUM CHLORIDE 0.9% FLUSH 10 ML FLUSH IV FLUSH SCH ×2 (09:00→20:21)
[2017-12-05] MEDS: CALCIUM ACETATE 667 MG CAP PO SCH ×2 (09:00→13:00)
[2017-12-05] MEDS: CALCITRIOL 0.25 MCG CAP PO SCH ×2 (09:00→22:15)
[2017-12-05] MEDS ORDERED: SODIUM CHLOR 0.9% 1000 ML INJ 1,000 ML IV PRN (09:04)
[2017-12-05] MEDS ORDERED: SODIUM CHLOR 0.9% 1000 ML INJ 1,000 ML OTHER PRN ×2 (09:04)
[2017-12-05] MEDS ORDERED: ONDANSETRON HCL 4 MG/2 ML VIAL IV PUSH PRN (09:15)
[2017-12-05] MEDS ORDERED: NITROGLYCERIN 0.4 MG SL 25 TABS/BTL SL PRN (09:15)
[2017-12-05] MEDS ORDERED: GENTAMICIN SULFATE 20 MG/2 ML VIAL OTHER PRN (09:15)
[2017-12-05] MEDS ORDERED: EPOETIN ALFA 10,000 UNITS/ML VIAL IV PUSH PRN (09:15)
[2017-12-05] MEDS ORDERED: ALBUMIN 25% INJ 100 ML IV PRN (09:15)
[2017-12-05] MEDS ORDERED: SODIUM CHLORIDE 0.9% FLUSH 10 ML FLUSH IV FLUSH PRN (09:15)
[2017-12-05] MEDS ORDERED: HEPARIN SODIUM - IV 10,000 UNITS/10 ML VIAL PRN (09:15)
[2017-12-05] MEDS ORDERED: GELATIN 12 MM/7 MM FOAM TOP PRN (09:15)
[2017-12-05] MEDS ORDERED: MANNITOL 12.5 GM/50 ML VIAL IV PRN (09:15)
[2017-12-05] MEDS ORDERED: diphenhydrAMINE HCL 25 MG CAP PO PRN (09:15)
[2017-12-05] MEDS ORDERED: cloNIDine HCL 0.1 MG TAB PO PRN (09:15)
[2017-12-05] MEDS ORDERED: HEPARIN SODIUM - IV 10,000 UNITS/10 ML VIAL IV FLUSH PRN (09:15)
[2017-12-05] MEDS ORDERED: ACETAMINOPHEN 325 MG TAB PO PRN (09:15)
[2017-12-05] MEDS: MIDODRINE 5 MG TAB PO SCH ×3 (09:56→18:00)
--- NOTE | 2017-12-05 10:00 | PD.CONS ---
HPI History of Present Illness This is a 42 year old with PMH significant for ESRD S/P previous kidney transplant for renal defect and currently on HD MWF, chronic back pain, and neuropathy. Our service has been consulted to evaluate pt for reports of melena with occult positive stool in ER. Pt presented to the ER last night with complaints of black, tarry stools for the past month and a half. However, states that sometimes he also has dark red stools and that this seems to happen intermittently over the past month and a half. Has approx 4-5 stools a day. Also notices blood on the toilet paper when he wipes. Pt complaining of fatigue that has been progressively getting worse over the past week. Also complaining of intermittent nausea, denies emesis. Complaining of abdominal pain, states has pain in both sides and lower abdominal pain, described as cramping and seems to be related to his BMs. Takes Omeprazole for acid reflux but has also been having to take Tums OTC. Denies dysphagia, odynophagia, weight loss. Does report taking Aleve almost daily for chronic hand pain. Admits to occasional ETOH, Denies smoking and illicit drug use. Last colonoscopy done by Dr. Adams a few years ago, thinks it was a normal exam, has not been to his office since procedure. Does not think he has ever had EGD. (Suzi Arriaga) PFSH Past Medical History End-stage renal disease on dialysis Saturday Chronic back pain Neuropathy Past Surgical History Parathyroidectomy Kidney transplant with subsequent removal of transplanted kidney Fistula 4 Skin graft (Suzi Arriaga) Coded Allergies: No Known Allergies (Verified Allergy, Unknown, 12/05/17) Family History Negative for CAD/DM Social History Occasional alcohol. Denies tobacco and illicit drugs (Suzi Arriaga) Review of Systems Gastrointestinal: COMPLAINS OF: Abdominal pain, Black stools, Bloody stools, Diarrhea, Nausea, Difficulty Swallowing, Heartburn, DENIES: Constipation, Vomiting, Odynophagia, Swelling of Abdomen, Hematemesis (Suzi Arriaga) GI Exam Vitals I&O Vital Signs Date Time Temp Pulse Resp B/P (MAP) Pulse Ox O2 Delivery O2 Flow Rate FiO2 12/05/17 08:35 89 18 133/53 (79) 97 Room Air 12/05/17 06:00 78 16 120/56 (77) 95 Room Air 12/05/17 02:31 89 18 122/55 (77) 95 12/04/17 20:06 99.3 102 18 137/61 (86) 97 I/O 12/04/17 12/04/17 12/04/17 12/05/17 12/05/17 12/05/17 07:00 15:00 23:00 07:00 15:00 23:00 Intake Total 110 ml Balance 110 ml Intake IV Total 110 ml Laboratory Test 12/04/17 23:34 12/05/17 07:17 White Blood Count 8.6 TH/MM3 Red Blood Count 3.53 MIL/MM3 Hemoglobin 9.0 GM/DL 8.4 GM/DL Hematocrit 28.7 % 26.7 % Mean Corpuscular Volume 81.3 FL Mean Corpuscular Hemoglobin 25.5 PG Mean Corpuscular Hemoglobin Concent 31.4 % Red Cell Distribution Width 17.4 % Platelet Count 274 TH/MM3 Mean Platelet Volume 7.8 FL Neutrophils (%) (Auto) 77.6 % Lymphocytes (%) (Auto) 11.1 % Monocytes (%) (Auto) 6.9 % Eosinophils (%) (Auto) 3.9 % Basophils (%) (Auto) 0.5 % Neutrophils # (Auto) 6.7 TH/MM3 Lymphocytes # (Auto) 1.0 TH/MM3 Monocytes # (Auto) 0.6 TH/MM3 Eosinophils # (Auto) 0.3 TH/MM3 Basophils # (Auto) 0.0 TH/MM3 CBC Comment DIFF FINAL Differential Comment Prothrombin Time 10.6 SEC Prothromb Time International Ratio 1.0 RATIO Blood Urea Nitrogen 30 MG/DL Creatinine 9.83 MG/DL Random Glucose 109 MG/DL Total Protein 8.7 GM/DL Albumin 3.5 GM/DL Calcium Level 7.3 MG/DL Alkaline Phosphatase 65 U/L Aspartate Amino Transf (AST/SGOT) 22 U/L Alanine Aminotransferase (ALT/SGPT) 17 U/L Total Bilirubin 0.3 MG/DL Sodium Level 136 MEQ/L Potassium Level 4.3 MEQ/L Chloride Level 97 MEQ/L Carbon Dioxide Level 31.8 MEQ/L Anion Gap 7 MEQ/L Estimat Glomerular Filtration Rate 7 ML/MIN Protein Corrected Calcium MG/DL Physical Examination HEENT: Normocephalic; atraumatic CHEST: Even/unlabored CARDIAC: RRR ABDOMEN: Obese, firm, nontender, bowel sounds active SKIN: Normal; no rash; no jaundice. SUPERVISOR POLICY CHANGE CLERKS: No focal deficits; alert and oriented times three. (Suzi Arriaga) Assessment and Plan Plan Assessment: - GIB with occult positive stool in ER. Pt reports melena for the past month and a half but also states has had intermittent dark red blood in stool as well as BRB on toilet paper when he wipes. H/H currently 8.4/26.7- labs from Jul 2017 12.3/38.8. Last colonoscopy was a few years ago by Dr. Adams states normal exam, does not follow up in his office anymore. Does not think he has ever had EGD. Reports almost daily Aleve for hand pain. - Nausea, denies emesis - Acid reflux- Takes Omeprazole, has also been having to take OTC Tums for relief - ESRD on HD MWF, hx kidney transplant- born with congenital defect Addendum- Repeat H/H from 1500 6.2/20.4, 2 U PRBCs ordered to be given now. Discussed with Dr. Sams. Discussed with Dr. Deleon Plan: EGD/colonoscopy tomorrow Obtain consent Clear liquids today GoLytely prep NPO after MN Protonix Monitor H/H Transfuse per attending Further recommendations based on findings of above Pt has been seen and examined by myself and Dr. Deleon and this note is written on his behalf (Suzi Arriaga) Physician Comments Seen and examined Agree with above Continue with current supportive care Monitor labs Plan for an EGD with colonoscopy tomorrow (Jake Deleon MD) Suzi Arriaga Dec 05, 2017 10:00 Jake Deleon MD Dec 05, 2017 21:37
--- NOTE | 2017-12-05 10:07 | HHI.PR ---
Addendum to Inpatient Note Addendum Reason: Additional Documentation Additional Information The patient has been seen and examined by me. Patient is resting comfortably in bed. Denies any nausea or vomiting. Denies abdominal pain. Abdomen is soft , nontender nondistended. Hemoglobin slightly lower from a pleasure to a 0.4. Continue to monitor hemoglobin and transfuse as needed for hemoglobin less than 8 if active bleeding of less than 7. There is no bleeding. Transfuse if symptomatic anemia. GI consulted, planned EGD for/colonoscopy tomorrow. Unclear liquids, diet as per GI recommendations, nothing by mouth after midnight. Osmany Bonilla MD Dec 05, 2017 10:07
--- NOTE | 2017-12-05 10:26 | PD.CONS ---
HPI Service Nephrology Consult Requested By Shari Reason for Consult ESRD on HD Primary Care Physician Gary Mtz MD History of Present Illness This is a 42 y/o AAM patient maintained on HD [facility]. He had full treatment yesterday with 4.3 Liters fluid removal. He came to ER for evaluation of dark stools x 2 weeks. he associates this with mild abdominal pain during BMs. He is anemic on arrival, hx of anemia of chronic disease. PMH hypotension on midodrine, hx of hypocalcemia s/p parathyroidectomy. He has AVF right arm, is patent. We were consulted for dialysis mangement. He is a full code. (Yasmeen An) Review of Systems Constitutional: COMPLAINS OF: Fatigue, DENIES: Weight gain, Change in appetite Cardiovascular: DENIES: Chest pain, Lower Extremity Edema Gastrointestinal: COMPLAINS OF: Abdominal pain, Black stools, Nausea, DENIES: Bloody stools, Constipation, Diarrhea, Difficulty Swallowing (Yasmeen An) Past Family Social History Allergies: Coded Allergies: No Known Allergies (Verified Allergy, Unknown, 12/05/17) Past Medical History ESRD on HD MWF Anemia of chronic disease Intradialytic hypotension Hypocalcemia s/p parathyroidectomy Obesity Past Surgical History Parathyroidectomy Kidney transplant with subsequent removal of transplanted kidney AVF surgery 4 Reported Medications Lorazepam 0.5 Mg Tab 0.5 Mg PO DAILY PRN Calcitriol 0.5 Mcg Cap 5 Tab PO BID Midodrine 5 Mg Tab 5 Mg PO TID Calcium Acetate (Phosphate Binder) 667 Mg Cap 2,400 Mg PO TID Active Ordered Medications Current Medications Medications (Trade) Dose Ordered Sig/Malaika Route Start Time Stop Time Status Last Admin (Pepcid Inj) 20 mg ONCE IV PUSH 12/05/17 02:00 12/05/17 02:29 (NS Flush) 2 ml UNSCH PRN IV FLUSH 12/05/17 03:30 (NS Flush) 2 ml BID IV FLUSH 12/05/17 09:00 (Zofran Inj) 4 mg Q6H PRN IVP 12/05/17 03:30 (Narcan Inj) 0.4 mg UNSCH PRN IV PUSH 12/05/17 03:30 (Protonix Inj) 40 mg Q12H IV PUSH 12/05/17 14:00 (Rocaltrol) 2.5 mcg BID PO 12/05/17 09:00 (Phoslo) 2,400 mg TID PO 12/05/17 09:00 UNV (Ativan) 0.5 mg DAILY PRN PO 12/05/17 04:45 (Proamatine) 5 mg TID PO 12/05/17 09:00 12/05/17 09:56 Sodium Chloride 1,000 ml @ 0 mls/hr Q0M PRN OTHER 12/05/17 09:04 UNV (Heparin Inj) 8,000 units UNSCH PRN IV FLUSH 12/05/17 09:15 UNV Sodium Chloride 1,000 ml @ 200 mls/hr Q5H PRN IV 12/05/17 09:04 UNV Sodium Chloride 1,000 ml @ 0 mls/hr Q0M PRN OTHER 12/05/17 09:04 UNV (Mannitol Inj) 12.5 gm UNSCH PRN IV 12/05/17 09:15 UNV Albumin Human 100 ml @ 60 mls/hr UNSCH PRN IV 12/05/17 09:15 UNV (NS Flush) 5 ml UNSCH PRN IV FLUSH 12/05/17 09:15 UNV (Heparin Inj) UNSCH PRN .XX 12/05/17 09:15 UNV (Gentamicin Inj) 20 mg UNSCH PRN OTHER 12/05/17 09:15 UNV (Zofran Inj) 4 mg UNSCH PRN IV PUSH 12/05/17 09:15 UNV (Tylenol) 650 mg UNSCH PRN PO 12/05/17 09:15 UNV (Benadryl) 25 mg UNSCH PRN PO 12/05/17 09:15 UNV (Nitrostat Sl) 0.4 mg UNSCH PRN SL 12/05/17 09:15 UNV (Catapres) 0.1 mg UNSCH PRN PO 12/05/17 09:15 UNV (Epogen Inj) 10,000 units UNSCH PRN IV PUSH 12/05/17 09:15 UNV (Gelfoam 12 Mm/7 Mm Top) 1 foam UNSCH PRN TOP 12/05/17 09:15 UNV (Colyte Liq) 4,000 ml ONCE ONCE PO 12/05/17 16:00 12/05/17 16:01 UNV Family History Non contributory Social History Non smoking 2-3 drinks/week He is Ambulatory, he is active and does not need assistance Full code Disabled (Yasmeen An) Physical Exam Vital Signs Vital Signs Date Time Temp Pulse Resp B/P (MAP) Pulse Ox O2 Delivery O2 Flow Rate FiO2 12/05/17 08:35 89 18 133/53 (79) 97 Room Air 12/05/17 06:00 78 16 120/56 (77) 95 Room Air 12/05/17 02:31 89 18 122/55 (77) 95 12/04/17 20:06 99.3 102 18 137/61 (86) 97 Physical Exam Middle aged obese AAM, resting Awake, alert/oriented x 3 S1/S2,. RRR no murmurs Abd soft, NT/ND Lungs clear Trace edema bilateral lower ext AVF right arm, patent Laboratory Laboratory Tests Test 12/04/17 23:34 12/05/17 07:17 White Blood Count 8.6 Red Blood Count 3.53 Hemoglobin 9.0 8.4 Hematocrit 28.7 26.7 Mean Corpuscular Volume 81.3 Mean Corpuscular Hemoglobin 25.5 Mean Corpuscular Hemoglobin Concent 31.4 Red Cell Distribution Width 17.4 Platelet Count 274 Mean Platelet Volume 7.8 Neutrophils (%) (Auto) 77.6 Lymphocytes (%) (Auto) 11.1 Monocytes (%) (Auto) 6.9 Eosinophils (%) (Auto) 3.9 Basophils (%) (Auto) 0.5 Neutrophils # (Auto) 6.7 Lymphocytes # (Auto) 1.0 Monocytes # (Auto) 0.6 Eosinophils # (Auto) 0.3 Basophils # (Auto) 0.0 CBC Comment DIFF FINAL Differential Comment Prothrombin Time 10.6 Prothromb Time International Ratio 1.0 Blood Urea Nitrogen 30 Creatinine 9.83 Random Glucose 109 Total Protein 8.7 Albumin 3.5 Calcium Level 7.3 Alkaline Phosphatase 65 Aspartate Amino Transf (AST/SGOT) 22 Alanine Aminotransferase (ALT/SGPT) 17 Total Bilirubin 0.3 Sodium Level 136 Potassium Level 4.3 Chloride Level 97 Carbon Dioxide Level 31.8 Anion Gap 7 Estimat Glomerular Filtration Rate 7 Protein Corrected Calcium (Yasmeen An) Result Diagram: 12/05/17 0717 12/04/17 0984 Assessment and Plan Problem List: (1) ESRD (end stage renal disease) ICD Codes: N18.6 - End stage renal disease Status: Acute Plan: Continue HD support MWF, had full treatment yesterday (4.3 L UF) No indication for HD today, plan for tomorrow Avoid IVF, gadolinium is contraindicated Repeat labs intermittently Uses AVF for treatment, it is patent (2) Bone metabolism disorder ICD Codes: E88.9 - Metabolic disorder, unspecified; M90.80 - Osteopathy in diseases classified elsewhere, unspecified site Plan: On calcium acetate with meals (3) Anemia ICD Codes: D64.9 - Anemia, unspecified Status: Acute Plan: Epogen with dialysis has been ordered Iron profile pending Transfuse if needed (4) Hypotension of hemodialysis ICD Codes: I95.3 - Hypotension of hemodialysis Plan: On midodrine (5) Hypocalcemia ICD Codes: E83.51 - Hypocalcemia Status: Acute Plan: s/p parathyroidectomy Continue replacement calcitriol; add Tums 3 TID (6) GI bleed ICD Codes: K92.2 - Gastrointestinal hemorrhage, unspecified Plan: GI to follow EGD/colonoscopy tomorrow (Yasmeen An) Assessment and Plan patient was seen and examined. Agree with above assessment and plan. GI evaluation. Dialysis tomorrow and MWF. Monitor Hemoglobin. (Roderick Brower MD) Yasmeen An Dec 05, 2017 10:26 Roderick Brower MD Dec 05, 2017 14:29
[2017-12-05 12:32] LABS: % SATURATION IRON PROFILE 14.7 % (20-50); IRON (FE) 35 MCG/DL (65-175); TOTAL IRON BINDING CAPACITY 238 MCG/DL (250-450)
[2017-12-05] MEDS: CALCIUM CARBONATE 1.25 GM (CA 500 MG) TAB PO SCH ×2 (13:00→18:50)
[2017-12-05] MEDS: PANTOPRAZOLE SODIUM 40 MG VIAL IV PUSH SCH (14:35)
[2017-12-05 15:17] LABS: HEMATOCRIT 20.4 % (39.0-51.0); HEMOGLOBIN 6.2 GM/DL (13.0-17.0)
[2017-12-05] MEDS ORDERED: PEG (High)/E-LYTE SOLN 4000 ML BTL PO ONE (16:00)
[2017-12-05] MEDS ORDERED: SODIUM CHLOR 0.9% 250 ML INJ 250 ML IV ONE (18:00)
[2017-12-05 20:01] LABS: HEMATOCRIT 27.4 % (39.0-51.0); HEMOGLOBIN 8.5 GM/DL (13.0-17.0)
[2017-12-06] VITALS (14 sets, daily range): BP systolic 93–143; BP diastolic 57–89; PULSE 52–98; RESP 16–19; TEMP 97.4–98.2; O2SAT 95–99
[2017-12-06] MEDS: SODIUM CHLORIDE 0.9% FLUSH 10 ML FLUSH IV FLUSH PRN (02:29)
[2017-12-06] MEDS: PANTOPRAZOLE SODIUM 40 MG VIAL IV PUSH SCH ×2 (02:29→14:00)
[2017-12-06] MEDS ORDERED: LACTATED RINGER'S 1000 ML IV PRN (05:15)
[2017-12-06] MEDS ORDERED: SODIUM CHLORID 0.9% 500 ML IV PRN (05:15)
[2017-12-06] MEDS ORDERED: POVIDONE IODINE 5% (ANTISEPSIS KIT) 4 APPLICATIONS EACH NARE PRN (05:15)
[2017-12-06] MEDS ORDERED: METOPROLOL TARTRATE 25 MG TAB PO PRN (05:15)
[2017-12-06] MEDS ORDERED: CHLORHEXIDINE GLUCONATE 2 % 1 PACK (2 CLOTHS) TOPICAL PRN (05:15)
--- NOTE | 2017-12-06 08:01 | HHI.PR ---
Subjective Remarks This is a pleasant 42 y/o male with ESRD on Dialysis, who is been hospitalized with diagnosis of GI bleed, will go for EGD and Colonoscopy for later today. as per patient he uses, CPAP machine, asked for Respiratory therapy specialist. his present. Objective Vital Signs Date Time Temp Pulse Resp B/P (MAP) Pulse Ox O2 Delivery O2 Flow Rate FiO2 12/06/17 06:52 98.2 83 16 134/64 98 12/06/17 04:10 97.4 86 16 133/72 96 12/06/17 03:56 83 12/06/17 03:55 98.0 88 16 104/57 99 12/06/17 03:24 98.0 88 16 104/57 (73) 99 12/06/17 02:28 52 12/06/17 02:23 97.9 92 16 129/89 96 12/06/17 00:00 75 12/05/17 23:10 97.4 85 16 150/68 94 12/05/17 22:56 97.9 82 18 115/55 99 12/05/17 20:00 85 12/05/17 18:05 98.3 81 20 138/60 (86) 100 12/05/17 15:30 97.6 82 16 139/65 (89) 98 12/05/17 15:00 79 18 107/53 (71) 97 Room Air 12/05/17 13:45 89 18 96/44 (61) 95 Room Air 12/05/17 08:35 89 18 133/53 (79) 97 Room Air I/O 12/05/17 12/05/17 12/05/17 12/06/17 12/06/17 12/06/17 07:00 15:00 23:00 07:00 15:00 23:00 Intake Total 110 ml 10 ml 2020 ml Balance 110 ml 10 ml 2020 ml Intake Oral 960 ml IV Total 110 ml Packed Cells 800 ml Blood Product IV Normal Saline Flush 10 ml 260 ml # Voids 5 # Bowel Movements 8 Result Diagram: 12/05/17193612/04/172333 Imaging No new imaging studies. Procedures None Other Results Laboratory Tests Test 12/04/17 23:34 12/05/17 10:43 12/05/17 19:37 White Blood Count 8.6 TH/MM3 Red Blood Count 3.53 MIL/MM3 Mean Corpuscular Volume 81.3 FL Mean Corpuscular Hemoglobin 25.5 PG Mean Corpuscular Hemoglobin Concent 31.4 % Red Cell Distribution Width 17.4 % Platelet Count 274 TH/MM3 Mean Platelet Volume 7.8 FL Neutrophils (%) (Auto) 77.6 % Lymphocytes (%) (Auto) 11.1 % Monocytes (%) (Auto) 6.9 % Eosinophils (%) (Auto) 3.9 % Basophils (%) (Auto) 0.5 % Neutrophils # (Auto) 6.7 TH/MM3 Lymphocytes # (Auto) 1.0 TH/MM3 Monocytes # (Auto) 0.6 TH/MM3 Eosinophils # (Auto) 0.3 TH/MM3 Basophils # (Auto) 0.0 TH/MM3 CBC Comment DIFF FINAL Differential Comment Prothrombin Time 10.6 SEC Prothromb Time International Ratio 1.0 RATIO Blood Urea Nitrogen 30 MG/DL Creatinine 9.83 MG/DL Random Glucose 109 MG/DL Total Protein 8.7 GM/DL Albumin 3.5 GM/DL Calcium Level 7.3 MG/DL Alkaline Phosphatase 65 U/L Aspartate Amino Transf (AST/SGOT) 22 U/L Alanine Aminotransferase (ALT/SGPT) 17 U/L Total Bilirubin 0.3 MG/DL Sodium Level 136 MEQ/L Potassium Level 4.3 MEQ/L Chloride Level 97 MEQ/L Carbon Dioxide Level 31.8 MEQ/L Anion Gap 7 MEQ/L Estimat Glomerular Filtration Rate 7 ML/MIN Protein Corrected Calcium MG/DL Iron Level 35 MCG/DL Total Iron Binding Capacity 238 MCG/DL Percent Iron Saturation 14.7 % Hemoglobin 8.5 GM/DL Hematocrit 27.4 % Objective Remarks GENERAL: Obese, No acute distress. SKIN: No rashes, ecchymoses or lesions. Cool and dry. HEAD: Atraumatic. Normocephalic. No temporal or scalp tenderness. EYES: Pupils equal round and reactive. Extraocular motions intact. No scleral icterus. No injection or drainage. ENT: Nose without bleeding, purulent drainage or septal hematoma. Throat without erythema, tonsillar hypertrophy or exudate. Uvula midline. Airway patent. NECK: Trachea midline. No JVD or lymphadenopathy. Supple, nontender, no meningeal signs. CARDIOVASCULAR: Regular rate and rhythm without murmurs, gallops, or rubs. RESPIRATORY: Clear to auscultation. Breath sounds equal bilaterally. No wheezes , rales, or rhonchi. GASTROINTESTINAL: Abdomen soft, non-tender, nondistended. No hepato-splenomegaly , or palpable masses. No guarding. MUSCULOSKELETAL: Extremities without clubbing, cyanosis, or edema. No joint tenderness, effusion, or edema noted. No calf tenderness. NEUROLOGICAL: Awake and alert. Cranial nerves II through XII intact. Motor and sensory grossly within normal limits. Normal speech. Medications and IVs Current Medications Medications (Trade) Dose Ordered Sig/Malaika Route Start Time Stop Time Status Last Admin (Pepcid Inj) 20 mg ONCE IV PUSH 12/05/17 02:00 12/05/17 02:29 (NS Flush) 2 ml UNSCH PRN IV FLUSH 12/05/17 03:30 12/06/17 02:29 (NS Flush) 2 ml BID IV FLUSH 12/05/17 09:00 12/05/17 20:21 (Zofran Inj) 4 mg Q6H PRN IVP 12/05/17 03:30 (Narcan Inj) 0.4 mg UNSCH PRN IV PUSH 12/05/17 03:30 (Protonix Inj) 40 mg Q12H IV PUSH 12/05/17 14:00 12/06/17 02:29 (Rocaltrol) 2.5 mcg BID PO 12/05/17 09:00 12/05/17 22:15 (Phoslo) 2,668 mg TID PO 12/05/17 09:00 (Ativan) 0.5 mg DAILY PRN PO 12/05/17 04:45 (Proamatine) 5 mg TID PO 12/05/17 09:00 12/05/17 14:35 Sodium Chloride 1,000 ml @ 0 mls/hr Q0M PRN OTHER 12/05/17 09:04 (Heparin Inj) 8,000 units UNSCH PRN IV FLUSH 12/05/17 09:15 Sodium Chloride 1,000 ml @ 200 mls/hr Q5H PRN IV 12/05/17 09:04 Sodium Chloride 1,000 ml @ 0 mls/hr Q0M PRN OTHER 12/05/17 09:04 (Mannitol Inj) 12.5 gm UNSCH PRN IV 12/05/17 09:15 Albumin Human 100 ml @ 60 mls/hr UNSCH PRN IV 12/05/17 09:15 (NS Flush) 5 ml UNSCH PRN IV FLUSH 12/05/17 09:15 (Heparin Inj) UNSCH PRN .XX 12/05/17 09:15 (Gentamicin Inj) 20 mg UNSCH PRN OTHER 12/05/17 09:15 (Zofran Inj) 4 mg UNSCH PRN IV PUSH 12/05/17 09:15 (Tylenol) 650 mg UNSCH PRN PO 12/05/17 09:15 (Benadryl) 25 mg UNSCH PRN PO 12/05/17 09:15 (Nitrostat Sl) 0.4 mg UNSCH PRN SL 12/05/17 09:15 (Catapres) 0.1 mg UNSCH PRN PO 12/05/17 09:15 (Epogen Inj) 10,000 units UNSCH PRN IV PUSH 12/05/17 09:15 (Gelfoam 12 Mm/7 Mm Top) 1 foam UNSCH PRN TOP 12/05/17 09:15 (Oscal) 500 mg TID PO 12/05/17 13:00 12/05/17 18:50 Sodium Chloride 250 ml @ 15 mls/hr ONCE ONCE IV 12/05/17 18:00 12/06/17 10:39 12/06/17 02:28 Lactated Ringer's 1,000 ml @ 30 mls/hr Q24H PRN IV 12/06/17 05:15 12/09/17 05:14 Sodium Chloride 500 ml @ 30 mls/hr [id number] PRN IV 12/06/17 05:15 12/09/17 05:14 (Lopressor) 25 mg WATER TAXI CAPTAIN PRN PO 12/06/17 05:15 12/09/17 05:14 (Betadine 5% Antisepsis Kit) 1 applic WATER TAXI CAPTAIN PRN EACH NARE 12/06/17 05:15 12/09/17 05:14 (Chlorhexidine 2% Cloth) 3 pack WATER TAXI CAPTAIN PRN TOPICAL 12/06/17 05:15 12/09/17 05:14 A/P Assessment and Plan 1. GI bleed GI specialist following, continue gastric protection, for probable EGD and Colonoscopy today. for later today. Status post blood transfusion of two units of PRBCs. 2. End-stage renal disease on dialysis Dialysis MWF Patient's gambreler helper, Dr. Neves, following. 3. Obesity strongly recommended diet and exercise. 4. YANIRA on CPAP asked for Respiratory therapy and he will bring the machine to the hospital 5. Symptomatic anemia Hemoglobin 9.6 from 6.2 after two units of PRBCs. also Epogen as per nephrology psecialist. DVT prophylaxis with SCDs. and children present. Discharge Planning Once cleared by GI specialist. Dre Cates MD Dec 06, 2017 08:01
[2017-12-06] MEDS: MIDODRINE 5 MG TAB PO SCH ×3 (09:00→19:58)
[2017-12-06] MEDS: CALCITRIOL 0.25 MCG CAP PO SCH ×2 (09:00→19:59)
[2017-12-06] MEDS: CALCIUM CARBONATE 1.25 GM (CA 500 MG) TAB PO SCH ×3 (09:00→19:58)
[2017-12-06] MEDS: CALCIUM ACETATE 667 MG CAP PO SCH ×3 (09:00→19:58)
[2017-12-06] MEDS: SODIUM CHLORIDE 0.9% FLUSH 10 ML FLUSH IV FLUSH SCH ×2 (09:00→19:59)
--- NOTE | 2017-12-06 11:09 | HHI.NPPN ---
Subjective General Problems: Anemia Renal Failure: Chronic, End Stage Renal Disease Interval History Worsening anemia, he has received 2 units PRBC. Due for EGD/colonoscopy today. (Yasmeen An) Objective Data Data Vital Signs Date Time Temp Pulse Resp B/P (MAP) Pulse Ox O2 Delivery O2 Flow Rate FiO2 12/06/17 08:00 97.7 85 16 143/65 (91) 95 12/06/17 06:52 98.2 83 16 134/64 98 12/06/17 04:10 97.4 86 16 133/72 96 12/06/17 03:56 83 12/06/17 03:55 98.0 88 16 104/57 99 12/06/17 03:24 98.0 88 16 104/57 (73) 99 12/06/17 02:28 52 12/06/17 02:23 97.9 92 16 129/89 96 12/06/17 00:00 75 12/05/17 23:10 97.4 85 16 150/68 94 12/05/17 22:56 97.9 82 18 115/55 99 12/05/17 20:00 85 12/05/17 18:05 98.3 81 20 138/60 (86) 100 12/05/17 15:30 97.6 82 16 139/65 (89) 98 12/05/17 15:00 79 18 107/53 (71) 97 Room Air 12/05/17 13:45 89 18 96/44 (61) 95 Room Air (Yasmeen An) -: 12/05/17 1937 12/04/17 2334 Physical Exam General Appearance: Well Developed, No Acute Distress, Comfortable, Obese (Yasmeen An) Throat Throat Exam: Oral Mucosa [place] & Moist (Yasmeen An) Pulmonary Resp Exam: Clear Bilaterally, Breath Sounds Equal (Yasmeen An) Cardiology CV Exam: Regular, Normal Sinus Rhythm (Yasmeen An) Gastrointestinal/Abdomen GI Exam: Soft, Non-Tender, Bowel Sounds Present GI Remarks obese (Yasmeen An) Musculoskeletal MS Exam: Joints Intact, Normal Gait, Normal Tone (Yasmeen An) Integumentary Skin Exam: Warm, Dry, Intact (Yasmeen An) Extremeties Extremities Exam: No Edema, Pedal Pulses Palpable Extremeties Remarks AVF right arm, + thrill/bruit (Yasmeen An) Neurologic Neuro Exam: Alert, Awake, Oriented, Speech Clear, Moving All Extremities (Yasmeen An) Psychiatric Psych Exam: Appropriate Responses (Yasmeen An) Assessment/Plan Discussed Condition With: Patient, Spouse Assessment Summary: Anemia of CKD, End Stage Renal Disease Problem List: (1) ESRD (end stage renal disease) ICD Codes: N18.6 - End stage renal disease Status: Acute Plan: Continue HD support MWF due today Avoid IVF, gadolinium is contraindicated Repeat labs intermittently Uses AVF for treatment, it is patent (2) Bone metabolism disorder ICD Codes: E88.9 - Metabolic disorder, unspecified; M90.80 - Osteopathy in diseases classified elsewhere, unspecified site Plan: On calcium acetate with meals (3) Anemia ICD Codes: D64.9 - Anemia, unspecified Status: Acute Plan: Epogen with dialysis has been ordered has iron deficiency, start Venofer IV Transfuse if needed , given 2 units overnight (4) Hypotension of hemodialysis ICD Codes: I95.3 - Hypotension of hemodialysis Plan: On midodrine (5) Hypocalcemia ICD Codes: E83.51 - Hypocalcemia Status: Acute Plan: s/p parathyroidectomy Continue replacement calcitriol; add Tums 3 TID (6) GI bleed ICD Codes: K92.2 - Gastrointestinal hemorrhage, unspecified Plan: GI to follow EGD/colonoscopy today; plan of care depending on results (Yasmeen An) Plan patient was seen and examined. Agree with above assessment and plan. (Roderick Brower MD) Problem Qualifiers (1) GI bleed: Qualified Codes: K92.1 - Melena Yasmeen An Dec 06, 2017 11:09 Roderick Brower MD Dec 09, 2017 10:39
[2017-12-06] MEDS ORDERED: PHENYLEPH/NS 1000 MCG/10 ML SYR IV ONE (12:00)
[2017-12-06] MEDS ORDERED: PROPOFOL 200 MG/20 ML AMP IV ONE (12:00)
[2017-12-06] MEDS ORDERED: ONDANSETRON HCL 4 MG/2 ML VIAL IV ONE (12:00)
[2017-12-06] MEDS ORDERED: ROCURONIUM INJ 50 MG/5 ML SYRINGE IV PUSH ONE (12:00)
[2017-12-06 14:16] LABS: AUTOMATED NEUTROPHIL # 6.2 TH/MM3 (1.8-7.7); BASOPHIL % 0.4 % (0.0-2.0); EOSINOPHIL # 0.3 TH/MM3 (0-0.4); HEMATOCRIT 30.6 % (39.0-51.0); HEMOGLOBIN 9.6 GM/DL (13.0-17.0); LYMPH % 14.6 % (9.0-44.0); LYMPHOCYTE # 1.2 TH/MM3 (1.0-4.8); MEAN CELL VOLUME 81.5 FL (80.0-100.0); MEAN CORPUSCULAR HEMOGLOBIN 25.6 PG (27.0-34.0); MEAN CORPUSCULAR HGB CONC 31.4 % (32.0-36.0); MEAN PLATELET VOLUME 7.7 FL (7.0-11.0); MONO % 5.1 % (0.0-8.0); MONOCYTE # 0.4 TH/MM3 (0-0.9); NEUT % 75.9 % (16.0-70.0); PLATELET COUNT 239 TH/MM3 (150-450); RED BLOOD COUNT 3.75 MIL/MM3 (4.50-5.90); RED CELL DISTRIBUTION WIDTH 16.9 % (11.6-17.2); WHITE BLOOD COUNT 8.1 TH/MM3 (4.0-11.0)
[2017-12-06 15:08] LABS: BICARBONATE 26.4 MEQ/L (21.0-32.0); CALCIUM 6.8 MG/DL (8.5-10.1)
[2017-12-06 15:19] LABS: CREATININE 13.56 MG/DL (0.60-1.30)
[2017-12-06 15:35] LABS: TOTAL PROTEIN 8.2 GM/DL (6.4-8.2)
[2017-12-06] MEDS: IRON SUCROSE INJ 100 MG in SODIUM CHLORIDE 0.9% INJ 100 ML IV SCH (15:36)
[2017-12-06 15:37] LABS: CALCIUM-PROTEIN CORRECTED 6.4 MG/DL (8.5-10.1)
[2017-12-06] MEDS ORDERED: SUGAMMADEX SODIUM 200 MG/2 ML VIAL IV PUSH ONE (18:00)
[2017-12-06] MEDS ORDERED: DO NOT ADM ANY ANTICOAGULANT DRUGS PRN (19:30)
--- NOTE | 2017-12-06 20:28 | PD.PROCEDR ---
GI Procedure PROCEDURE PERFORMED EGD with biopsy followed by colonoscopy INDICATION FOR PROCEDURE GI bleed, guaiac positive stools, reflux, nausea PROCEDURE: The procedure, risks and benefits were discussed with Patient/POA and informed consent was obtained. Anesthesia sedated Patient with Diprivan. Patient was placed in the left lateral decubitus position. EGD: The Pentax videoscope was introduced through the oropharynx and advanced to the second portion of the duodenum under direct visualization. Retroflexion was performed in the stomach. FINDINGS: The esophagus there was distal esophageal mucosal erythema suggestive of reflux esophagitis grade A this was biopsied The stomach there was some patchy erythema in the antrum but no ulcerations no erosions no blood or bleeding antral biopsies were taken for further evaluation The duodenum there were some large erythemic nodules noted in the duodenal bulb this may relate to his end-stage renal disease biopsies were taken otherwise there were duodenum was unremarkable Colonoscopy: The Pentax videoscope was introduced through the rectum and advanced to cecum where the ileocecal valve and appendiceal orifice were identified. Retroflexion was performed in the rectum. Colonic prep was good FINDINGS: Colonic withdrawal time greater than 6 minutes. As the scope was slowly withdrawn colonic mucosa was carefully inspected the colonic mucosa appeared to be unremarkable and within normal limits all the way through the patient was noted to have scattered diverticuli this was a mild case of diverticulosis retroflexion in the rectum did reveal moderate sized internal hemorrhoids rectal examination otherwise unremarkable I did note some fresh blood in the rectum but no obvious source of bleeding was seen and no active bleeding was seen ESTIMATED BLOOD LOSS: No blood was lost during the procedure SPECIMENS REMOVED: Esophageal, gastric, duodenal biopsies COMPLICATIONS: None IMPRESSION: Reflux esophagitis Mild gastritis Nodular duodenitis Diverticulosis Internal hemorrhoids PLAN: Await biopsies Recommend PPI Continue with current supportive care Monitor labs and transfuse as needed Colonoscopy in 5 years Jake Deleon MD Dec 06, 2017 20:28
[2017-12-06] MEDS ORDERED: CALCIUM GLUCONATE INJ 1 GM in DEXTROSE 5% IN WATER 100ML INJ 100 ML IV ONE ×2 (21:00)
[2017-12-07] VITALS: PULSE 99
[2017-12-07] MEDS: PANTOPRAZOLE SODIUM 40 MG VIAL IV PUSH SCH (02:47)
[2017-12-07] MEDS: SODIUM CHLORIDE 0.9% FLUSH 10 ML FLUSH IV FLUSH PRN (02:48)
[2017-12-07 04:00] VITALS: BP 117/59; PULSE 93; PULSE 95; RESP 20; TEMP 98.3; O2SAT 98
[2017-12-07 07:18] LABS: HEMATOCRIT 30.6 % (39.0-51.0); HEMOGLOBIN 9.6 GM/DL (13.0-17.0); MEAN CELL VOLUME 82.6 FL (80.0-100.0); MEAN CORPUSCULAR HEMOGLOBIN 25.8 PG (27.0-34.0); MEAN CORPUSCULAR HGB CONC 31.3 % (32.0-36.0); MEAN PLATELET VOLUME 7.7 FL (7.0-11.0); PLATELET COUNT 216 TH/MM3 (150-450); RED CELL DISTRIBUTION WIDTH 16.5 % (11.6-17.2); WHITE BLOOD COUNT 8.4 TH/MM3 (4.0-11.0)
[2017-12-07 08:00] VITALS: BP 130/61; PULSE 84; RESP 18; TEMP 97; O2SAT 91
[2017-12-07] MEDS: IRON SUCROSE INJ 100 MG in SODIUM CHLORIDE 0.9% INJ 100 ML IV SCH (08:58)
[2017-12-07] MEDS: CALCIUM CARBONATE 1.25 GM (CA 500 MG) TAB PO SCH (08:59)
[2017-12-07] MEDS: CALCIUM ACETATE 667 MG CAP PO SCH (08:59)
[2017-12-07] MEDS: CALCITRIOL 0.25 MCG CAP PO SCH (08:59)
[2017-12-07] MEDS: MIDODRINE 5 MG TAB PO SCH (09:02)
[2017-12-07] MEDS ORDERED: CALCITRIOL 0.25 MCG CAP PO SCH (10:00)
--- NOTE | 2017-12-07 10:03 | HHI.NPPN ---
Subjective General Problems: Anemia Renal Failure: Chronic, End Stage Renal Disease Additional Remarks Patient is alert, no SOB, no abd. pain, started eating . Objective Data Data 12/07/17 12/08/17 19:00 07:00 Intake Total 640 ml Balance 640 ml Intake Oral 640 ml # Voids 3 # Bowel Movements 0 Vital Signs Date Time Temp Pulse Resp B/P (MAP) Pulse Ox O2 Delivery O2 Flow Rate FiO2 12/07/17 08:00 97.0 84 18 130/61 (84) 91 12/07/17 04:00 93 12/07/17 04:00 98.3 95 20 117/59 (78) 98 12/07/17 00:00 99 12/06/17 23:00 97.7 98 19 93/63 (73) 96 12/06/17 20:54 97 12/06/17 20:45 98.1 88 18 137/60 (85) 98 12/06/17 19:30 91 25 118/53 (74) 99 Room Air 12/06/17 19:15 91 26 130/61 (84) 97 Room Air 12/06/17 19:00 88 21 119/59 (79) 100 Nasal Cannula 2 12/06/17 18:40 98.0 95 24 126/56 (79) 96 Nasal Cannula 2 12/06/17 17:48 21 12/06/17 12:00 97.8 86 16 124/75 (91) 98 12/06/17 11:45 80 -: 12/07/17 0459 12/06/17 1252 Physical Exam General Appearance: Well Developed, No Acute Distress, Comfortable, Obese Throat Throat Exam: Oral Mucosa [place] & Moist Pulmonary Resp Exam: Clear Bilaterally, Breath Sounds Equal Cardiology CV Exam: Regular, Normal Sinus Rhythm Gastrointestinal/Abdomen GI Exam: Soft, Non-Tender, Bowel Sounds Present Musculoskeletal MS Exam: Joints Intact, Normal Gait, Normal Tone Integumentary Skin Exam: Warm, Dry, Intact Extremeties Extremities Exam: Trace Edema Neurologic Neuro Exam: Alert, Awake, Oriented, Speech Clear, Moving All Extremities Psychiatric Psych Exam: Appropriate Responses Assessment/Plan Discussed Condition With: Patient, Spouse Assessment Summary: Anemia of CKD, End Stage Renal Disease Problem List: (1) ESRD (end stage renal disease) ICD Codes: N18.6 - End stage renal disease Status: Acute Plan: Continue HD support MWF due today Avoid IVF, gadolinium is contraindicated Repeat labs intermittently Uses AVF for treatment, it is patent. Hgb. is stable after transfusion. Calcium is low, on Phoslo and Oscal , add Calcitriol. Got one dose of IV Calcium. HD was done yesterday. Result of Endoscopy noted. (2) Bone metabolism disorder ICD Codes: E88.9 - Metabolic disorder, unspecified; M90.80 - Osteopathy in diseases classified elsewhere, unspecified site Plan: On calcium acetate with meals (3) Anemia ICD Codes: D64.9 - Anemia, unspecified Status: Acute Plan: Epogen with dialysis has been ordered has iron deficiency, start Venofer IV Transfuse if needed , given 2 units overnight (4) Hypotension of hemodialysis ICD Codes: I95.3 - Hypotension of hemodialysis Plan: On midodrine (5) Hypocalcemia ICD Codes: E83.51 - Hypocalcemia Status: Acute Plan: s/p parathyroidectomy Continue replacement calcitriol; add Tums 3 TID (6) GI bleed ICD Codes: K92.2 - Gastrointestinal hemorrhage, unspecified Plan: GI to follow EGD/colonoscopy today; plan of care depending on results Problem Qualifiers (1) GI bleed: Qualified Codes: K92.1 - Leydi Mccord MD Dec 07, 2017 10:03
--- NOTE | 2017-12-07 10:29 | HHI.GIFU ---
Subjective Remarks sitting on side of the bed with his family Appetite good eating 100% Currently receiving IV iron infusion Afebrile Denies any abdominal pain (Neelam Salgaod) Objective Vitals I&O Vital Signs Date Time Temp Pulse Resp B/P (MAP) Pulse Ox O2 Delivery O2 Flow Rate FiO2 12/07/17 08:00 97.0 84 18 130/61 (84) 91 12/07/17 04:00 93 12/07/17 04:00 98.3 95 20 117/59 (78) 98 12/07/17 00:00 99 12/06/17 23:00 97.7 98 19 93/63 (73) 96 12/06/17 20:54 97 12/06/17 20:45 98.1 88 18 137/60 (85) 98 12/06/17 19:30 91 25 118/53 (74) 99 Room Air 12/06/17 19:15 91 26 130/61 (84) 97 Room Air 12/06/17 19:00 88 21 119/59 (79) 100 Nasal Cannula 2 12/06/17 18:40 98.0 95 24 126/56 (79) 96 Nasal Cannula 2 12/06/17 17:48 21 12/06/17 12:00 97.8 86 16 124/75 (91) 98 12/06/17 11:45 80 I/O 12/06/17 12/06/17 12/06/17 12/07/17 12/07/17 12/07/17 07:00 15:00 23:00 07:00 15:00 23:00 Intake Total 2020 ml 800 ml 100 ml 640 ml Output Total 1500 ml Balance 2020 ml -700 ml 100 ml 640 ml Intake Oral 960 ml 640 ml IV Total 100 ml Packed Cells 800 ml Blood Product IV Normal Saline Flush 260 ml Other 800 ml Output Hemodialysis 1000 ml Other 500 ml # Voids 5 3 # Bowel Movements 8 0 Laboratory Laboratory Tests Test 12/06/17 12:52 12/07/17 04:59 White Blood Count 8.1 8.4 Red Blood Count 3.75 3.70 Hemoglobin 9.6 9.6 Hematocrit 30.6 30.6 Mean Corpuscular Volume 81.5 82.6 Mean Corpuscular Hemoglobin 25.6 25.8 Mean Corpuscular Hemoglobin Concent 31.4 31.3 Red Cell Distribution Width 16.9 16.5 Platelet Count 239 216 Mean Platelet Volume 7.7 7.7 Neutrophils (%) (Auto) 75.9 Lymphocytes (%) (Auto) 14.6 Monocytes (%) (Auto) 5.1 Eosinophils (%) (Auto) 4.0 Basophils (%) (Auto) 0.4 Neutrophils # (Auto) 6.2 Lymphocytes # (Auto) 1.2 Monocytes # (Auto) 0.4 Eosinophils # (Auto) 0.3 Basophils # (Auto) 0.0 CBC Comment DIFF FINAL Differential Comment Blood Urea Nitrogen 46 Creatinine 13.56 Random Glucose 74 Total Protein 8.2 Calcium Level 6.8 Sodium Level 136 Potassium Level 4.7 Chloride Level 97 Carbon Dioxide Level 26.4 Anion Gap 13 Estimat Glomerular Filtration Rate 5 Protein Corrected Calcium 6.4 Physical Exam HEENT: Pupils round and reactive to light; normocephalic; atraumatic; no jaundice. Speech is clear. Morbid obesity NECK: Neck is supple, short, thick CHEST: Chest is clear to auscultation and percussion. Obvious rhonchi CARDIAC: Regular rate and rhythm ABDOMEN: Large, obese, Soft, nondistended, nontender; bowel sounds are present in all four quadrants. EXTREMITIES: No clubbing, cyanosis, or edema. SKIN: Normal; no rash; no jaundice. DOCKET SPECIALIST: No focal deficits; alert and oriented times three. (Neelam Salgado) Assessment and Plan Plan Assessment: - GIB with occult positive stool in ER. Pt reports melena for the past month and a half but also states has had intermittent dark red blood in stool as well as BRB on toilet paper when he wipes. H/H currently 8.4/26.7- labs from Jul 2017 12.3/38.8. Last colonoscopy was a few years ago by Dr. Adams states normal exam, does not follow up in his office anymore. Does not think he has ever had EGD. Reports almost daily Aleve for hand pain. - Nausea, denies emesis - Acid reflux- Takes Omeprazole, has also been having to take OTC Tums for relief - ESRD on HD MWF, hx kidney transplant- born with congenital defect Addendum- Repeat H/H from 1500 6.2/20.4, 2 U PRBCs ordered to be given now. Discussed with Dr. Sams. Discussed with Dr. Deleon EGD/ Colonoscopy done on 12/06/17, Findings Reflux esophagitis, Mild gastritis, Nodular duodenitis, Diverticulosis, Internal hemorrhoids 12/07/17 Sitting up in bed, visiting with family, Denies any Abdominal pain, appetite good. No BM yet since Colonoscopy. Continuing with IV iron infusions. HGB currently9.6. No obvious bleeding. Explained colonoscopy and EGD findings to patient and his . PLAN: Await biopsies Monitor HGB and labs Transfuse as needed. PPI, Protonix supportive care Monitor labs and transfuse as needed Colonoscopy in 5 years Pt has been seen and examined by myself and Dr. Deleon and this note is written on his behalf (Neelam Salgado) Physician Comments Patient seen and examined Agree with above Continue with current supportive care Monitor lab Okay for discharge from a GI standpoint (Jake Deleon MD) Neelam Salgado Dec 07, 2017 10:29 Jake Deleon MD Dec 07, 2017 17:28
--- NOTE | 2017-12-07 11:54 | HHI.PR ---
Subjective Remarks This is a pleasant 42 y/o male with ESRD on Dialysis, who is been hospitalized with diagnosis of GI bleed, will go for EGD and Colonoscopy for later today. as per patient he uses, CPAP machine, asked for Respiratory therapy specialist. his present. 12/07: Seen in his bedroom in the presence of his , okay to discharge from GI specialist standpoint no nausea, vomit or diarrhea. his present. Objective Vital Signs Date Time Temp Pulse Resp B/P (MAP) Pulse Ox O2 Delivery O2 Flow Rate FiO2 12/07/17 08:00 97.0 84 18 130/61 (84) 91 12/07/17 04:00 93 12/07/17 04:00 98.3 95 20 117/59 (78) 98 12/07/17 00:00 99 12/06/17 23:00 97.7 98 19 93/63 (73) 96 12/06/17 20:54 97 12/06/17 20:45 98.1 88 18 137/60 (85) 98 12/06/17 19:30 91 25 118/53 (74) 99 Room Air 12/06/17 19:15 91 26 130/61 (84) 97 Room Air 12/06/17 19:00 88 21 119/59 (79) 100 Nasal Cannula 2 12/06/17 18:40 98.0 95 24 126/56 (79) 96 Nasal Cannula 2 12/06/17 17:48 21 12/06/17 12:00 97.8 86 16 124/75 (91) 98 I/O 12/06/17 12/06/17 12/06/17 12/07/17 12/07/17 12/07/17 07:00 15:00 23:00 07:00 15:00 23:00 Intake Total 2020 ml 800 ml 100 ml 640 ml Output Total 1500 ml Balance 2020 ml -700 ml 100 ml 640 ml Intake Oral 960 ml 640 ml IV Total 100 ml Packed Cells 800 ml Blood Product IV Normal Saline Flush 260 ml Other 800 ml Output Hemodialysis 1000 ml Other 500 ml # Voids 5 3 # Bowel Movements 8 0 Result Diagram: 12/07/17 0459 12/06/17 1252 Imaging No new imaging studies Procedures EGD Other Results Laboratory Tests Test 12/04/17 23:34 12/05/17 10:43 12/06/17 12:52 12/07/17 04:59 Prothrombin Time 10.6 SEC Prothromb Time International Ratio 1.0 RATIO Blood Urea Nitrogen 30 MG/DL 46 MG/DL Creatinine 9.83 MG/DL 13.56 MG/DL Random Glucose 109 MG/DL 74 MG/DL Total Protein 8.7 GM/DL 8.2 GM/DL Albumin 3.5 GM/DL Calcium Level 7.3 MG/DL 6.8 MG/DL Alkaline Phosphatase 65 U/L Aspartate Amino Transf (AST/SGOT) 22 U/L Alanine Aminotransferase (ALT/SGPT) 17 U/L Total Bilirubin 0.3 MG/DL Sodium Level 136 MEQ/L 136 MEQ/L Potassium Level 4.3 MEQ/L 4.7 MEQ/L Chloride Level 97 MEQ/L 97 MEQ/L Carbon Dioxide Level 31.8 MEQ/L 26.4 MEQ/L Iron Level 35 MCG/DL Total Iron Binding Capacity 238 MCG/DL Percent Iron Saturation 14.7 % Neutrophils (%) (Auto) 75.9 % Lymphocytes (%) (Auto) 14.6 % Monocytes (%) (Auto) 5.1 % Eosinophils (%) (Auto) 4.0 % Basophils (%) (Auto) 0.4 % Neutrophils # (Auto) 6.2 TH/MM3 Lymphocytes # (Auto) 1.2 TH/MM3 Monocytes # (Auto) 0.4 TH/MM3 Eosinophils # (Auto) 0.3 TH/MM3 Basophils # (Auto) 0.0 TH/MM3 CBC Comment DIFF FINAL Differential Comment Anion Gap 13 MEQ/L Estimat Glomerular Filtration Rate 5 ML/MIN Protein Corrected Calcium 6.4 MG/DL White Blood Count 8.4 TH/MM3 Red Blood Count 3.70 MIL/MM3 Hemoglobin 9.6 GM/DL Hematocrit 30.6 % Mean Corpuscular Volume 82.6 FL Mean Corpuscular Hemoglobin 25.8 PG Mean Corpuscular Hemoglobin Concent 31.3 % Red Cell Distribution Width 16.5 % Platelet Count 216 TH/MM3 Mean Platelet Volume 7.7 FL Objective Remarks GENERAL: Obese, No acute distress. SKIN: No rashes, ecchymoses or lesions. Cool and dry. HEAD: Atraumatic. Normocephalic. No temporal or scalp tenderness. EYES: Pupils equal round and reactive. Extraocular motions intact. No scleral icterus. No injection or drainage. ENT: Nose without bleeding, purulent drainage or septal hematoma. Throat without erythema, tonsillar hypertrophy or exudate. Uvula midline. Airway patent. NECK: Trachea midline. No JVD or lymphadenopathy. Supple, nontender, no meningeal signs. CARDIOVASCULAR: Regular rate and rhythm without murmurs, gallops, or rubs. RESPIRATORY: Clear to auscultation. Breath sounds equal bilaterally. No wheezes , rales, or rhonchi. GASTROINTESTINAL: Abdomen soft, non-tender, nondistended. No hepato-splenomegaly , or palpable masses. No guarding. MUSCULOSKELETAL: Extremities without clubbing, cyanosis, or edema. No joint tenderness, effusion, or edema noted. No calf tenderness. NEUROLOGICAL: Awake and alert. Cranial nerves II through XII intact. Motor and sensory grossly within normal limits. Normal speech. Medications and IVs Current Medications Medications (Trade) Dose Ordered Sig/Malaika Route Start Time Stop Time Status Last Admin (Pepcid Inj) 20 mg ONCE IV PUSH 12/05/17 02:00 12/05/17 02:29 (NS Flush) 2 ml UNSCH PRN IV FLUSH 12/05/17 03:30 12/07/17 02:48 (NS Flush) 2 ml BID IV FLUSH 12/05/17 09:00 12/06/17 19:59 (Zofran Inj) 4 mg Q6H PRN IVP 12/05/17 03:30 (Narcan Inj) 0.4 mg UNSCH PRN IV PUSH 12/05/17 03:30 (Protonix Inj) 40 mg Q12H IV PUSH 12/05/17 14:00 12/07/17 02:47 (Rocaltrol) 2.5 mcg BID PO 12/05/17 09:00 12/07/17 08:59 (Phoslo) 2,668 mg TID PO 12/05/17 09:00 12/07/17 08:59 (Ativan) 0.5 mg DAILY PRN PO 12/05/17 04:45 (Proamatine) 5 mg TID PO 12/05/17 09:00 12/07/17 09:02 Sodium Chloride 1,000 ml @ 0 mls/hr Q0M PRN OTHER 12/05/17 09:04 (Heparin Inj) 8,000 units UNSCH PRN IV FLUSH 12/05/17 09:15 Sodium Chloride 1,000 ml @ 200 mls/hr Q5H PRN IV 12/05/17 09:04 Sodium Chloride 1,000 ml @ 0 mls/hr Q0M PRN OTHER 12/05/17 09:04 (Mannitol Inj) 12.5 gm UNSCH PRN IV 12/05/17 09:15 Albumin Human 100 ml @ 60 mls/hr UNSCH PRN IV 12/05/17 09:15 (NS Flush) 5 ml UNSCH PRN IV FLUSH 12/05/17 09:15 (Heparin Inj) UNSCH PRN .XX 12/05/17 09:15 (Gentamicin Inj) 20 mg UNSCH PRN OTHER 12/05/17 09:15 (Zofran Inj) 4 mg UNSCH PRN IV PUSH 12/05/17 09:15 (Tylenol) 650 mg UNSCH PRN PO 12/05/17 09:15 (Benadryl) 25 mg UNSCH PRN PO 12/05/17 09:15 12/07/17 02:52 (Nitrostat Sl) 0.4 mg UNSCH PRN SL 12/05/17 09:15 (Catapres) 0.1 mg UNSCH PRN PO 12/05/17 09:15 (Epogen Inj) 10,000 units UNSCH PRN IV PUSH 12/05/17 09:15 12/06/17 15:36 (Gelfoam 12 Mm/7 Mm Top) 1 foam UNSCH PRN TOP 12/05/17 09:15 (Oscal) 500 mg TID PO 12/05/17 13:00 12/07/17 08:59 Lactated Ringer's 1,000 ml @ 30 mls/hr Q24H PRN IV 12/06/17 05:15 12/09/17 05:14 Sodium Chloride 500 ml @ 30 mls/hr [id number] PRN IV 12/06/17 05:15 12/09/17 05:14 (Lopressor) 25 mg CAPPER MACHINE OPERATOR PRN PO 12/06/17 05:15 12/09/17 05:14 (Betadine 5% Antisepsis Kit) 1 applic CAPPER MACHINE OPERATOR PRN EACH NARE 12/06/17 05:15 12/09/17 05:14 (Chlorhexidine 2% Cloth) 3 pack CAPPER MACHINE OPERATOR PRN TOPICAL 12/06/17 05:15 12/09/17 05:14 Iron Sucrose 100 mg/Sodium Chloride 105 ml @ 105 mls/hr DAILY IV 12/06/17 12:00 12/15/17 09:59 12/07/17 08:58 Miscellaneous Information ALL NURSING DEPARTME... UNSCH PRN .XX 12/06/17 19:30 12/07/17 19:29 A/P Assessment and Plan 1. GI bleed GI specialist following, continue gastric protection, for probable EGD and Colonoscopy today. for later today. Status post blood transfusion of two units of PRBCs. Hemoglobin 9.6 stable okay to discharge home from GI specialist standpoint. 2. End-stage renal disease on dialysis Dialysis [facility] Patient's supervisor pole yard, Dr. Neves, following. to continue medicine and following by Nephrology as outpatient. 3. Morbid Obesity strongly recommended diet and exercise. weight loss warranted. 4. YANIRA on CPAP 5. Symptomatic anemia Hemoglobin 9.6 from 6.2 after two units of PRBCs. also Epogen as per nephrology Specialist 6. Hypocalcemia replacement started by Nephrology. DVT prophylaxis with SCDs. and children present. Discharge Planning Discharge Home today. Dre Cates MD Dec 07, 2017 11:54
[2017-12-07 12:00] VITALS: BP 115/67; PULSE 91; RESP 18; TEMP 98.3; O2SAT 92
[2017-12-07] MEDS ORDERED: CARA1TAB6 PO (12:26)
[2017-12-07] MEDS ORDERED: CALC0.25 PO (12:26)
[2017-12-07] MEDS ORDERED: PROT40TA PO (12:26)
--- NOTE | 2017-12-07 12:28 | HHI.DS ---
Discharge Summary Admission Date Dec 06, 2017 at 15:21 Discharge Date: Dec 07, 2017 Admitting Diagnosis GI bleed (1) Hypocalcemia ICD Code: E83.51 - Hypocalcemia Diagnosis: Principal Status: Acute (2) ESRD (end stage renal disease) ICD Code: N18.6 - End stage renal disease Diagnosis: Secondary Status: Acute (3) GI bleed ICD Code: K92.2 - Gastrointestinal hemorrhage, unspecified Diagnosis: Principal Procedures EGD Brief History - From Admission 42-year-old male with end-stage renal disease on dialysis, chronic back pain and neuropathy presents to the emergency department for evaluation of black stools. The patient reports that he has had black stools for approximately the last 1-1/2 months. He states that he has been having worsening fatigue 1 week. He denies any shortness of breath. No chest pain. The patient states he had something similar in the past, several years ago and he had an outpatient colonoscopy which did not reveal any source of bleeding. He was Hemoccult positive in the emergency department. No nausea/vomiting/diarrhea. No abdominal pain. No lateralizing signs/symptoms. CBC/BMP: 12/07/17 0459 12/06/17 1252 Significant Findings Laboratory Tests Test 12/04/17 23:34 12/05/17 07:17 12/05/17 10:43 12/05/17 14:58 Red Blood Count 3.53 MIL/MM3 (4.50-5.90) Hemoglobin 9.0 GM/DL (13.0-17.0) 8.4 GM/DL (13.0-17.0) 6.2 GM/DL (13.0-17.0) Hematocrit 28.7 % (39.0-51.0) 26.7 % (39.0-51.0) 20.4 % (39.0-51.0) Mean Corpuscular Hemoglobin 25.5 PG (27.0-34.0) Mean Corpuscular Hemoglobin Concent 31.4 % (32.0-36.0) Red Cell Distribution Width 17.4 % (11.6-17.2) Neutrophils (%) (Auto) 77.6 % (16.0-70.0) Blood Urea Nitrogen 30 MG/DL (7-18) Creatinine 9.83 MG/DL (0.60-1.30) Random Glucose 109 MG/DL (74-106) Total Protein 8.7 GM/DL (6.4-8.2) Calcium Level 7.3 MG/DL (8.5-10.1) Chloride Level 97 MEQ/L (98-107) Estimat Glomerular Filtration Rate 7 ML/MIN (>89) Iron Level 35 MCG/DL (65-175) Total Iron Binding Capacity 238 MCG/DL (250-450) Percent Iron Saturation 14.7 % (20-50) Test 12/05/17 19:37 12/06/17 12:52 12/07/17 04:59 Hemoglobin 8.5 GM/DL (13.0-17.0) 9.6 GM/DL (13.0-17.0) 9.6 GM/DL (13.0-17.0) Hematocrit 27.4 % (39.0-51.0) 30.6 % (39.0-51.0) 30.6 % (39.0-51.0) Red Blood Count 3.75 MIL/MM3 (4.50-5.90) 3.70 MIL/MM3 (4.50-5.90) Mean Corpuscular Hemoglobin 25.6 PG (27.0-34.0) 25.8 PG (27.0-34.0) Mean Corpuscular Hemoglobin Concent 31.4 % (32.0-36.0) 31.3 % (32.0-36.0) Neutrophils (%) (Auto) 75.9 % (16.0-70.0) Blood Urea Nitrogen 46 MG/DL (7-18) Creatinine 13.56 MG/DL (0.60-1.30) Calcium Level 6.8 MG/DL (8.5-10.1) Chloride Level 97 MEQ/L (98-107) Estimat Glomerular Filtration Rate 5 ML/MIN (>89) Protein Corrected Calcium 6.4 MG/DL (8.5-10.1) Imaging no new imaging studies. PE at Discharge GENERAL: Morbid obesity, no acute distress. SKIN: No rashes, ecchymoses or lesions. Cool and dry. HEAD: Atraumatic. Normocephalic. No temporal or scalp tenderness. EYES: Pupils equal round and reactive. Extraocular motions intact. No scleral icterus. No injection or drainage. ENT: Nose without bleeding, purulent drainage or septal hematoma. Throat without erythema, tonsillar hypertrophy or exudate. Uvula midline. Airway patent. NECK: Trachea midline. No JVD or lymphadenopathy. Supple, nontender, no meningeal signs. CARDIOVASCULAR: Regular rate and rhythm without murmurs, gallops, or rubs. RESPIRATORY: Clear to auscultation. Breath sounds equal bilaterally. No wheezes , rales, or rhonchi. GASTROINTESTINAL: Abdomen soft, non-tender, nondistended. No hepato-splenomegaly , or palpable masses. No guarding. MUSCULOSKELETAL: Extremities without clubbing, cyanosis, or edema. No joint tenderness, effusion, or edema noted. No calf tenderness. NEUROLOGICAL: Awake and alert. Cranial nerves II through XII intact. Motor and sensory grossly within normal limits. Normal speech. Hospital Course This is a pleasant 42 y/o male with ESRD on Dialysis, who is been hospitalized with diagnosis of GI bleed, will go for EGD and Colonoscopy for later today. as per patient he uses, CPAP machine, asked for Respiratory therapy specialist. his present. 12/07: Seen in his bedroom in the presence of his , okay to discharge from GI specialist standpoint no nausea, vomit or diarrhea. his present. Assessment and Plan 1. GI bleed GI specialist following, continue gastric protection, for probable EGD and Colonoscopy today. for later today. Status post blood transfusion of two units of PRBCs. Hemoglobin 9.6 stable okay to discharge home from GI specialist standpoint. 2. End-stage renal disease on dialysis Dialysis [facility] Patient's html developer, Dr. Neves, following. to continue medicine and following by Nephrology as outpatient. 3. Morbid Obesity strongly recommended diet and exercise. weight loss warranted. 4. YANIRA on CPAP 5. Symptomatic anemia Hemoglobin 9.6 from 6.2 after two units of PRBCs. also Epogen as per nephrology Specialist 6. Hypocalcemia replacement started by Nephrology. DVT prophylaxis with SCDs. and children present. Discharge Planning Discharge Home today. Pt Condition on Discharge: Good Discharge Disposition: Discharge Home Discharge Time: <= 30 minutes Discharge Instructions DIET: Follow Instructions for: Heart Healthy Diet Activities you can perform: Regular-No Restrictions Dre Cates MD Dec 07, 2017 12:28
--- NOTE | 2017-12-08 12:23 | EKG ---
Date Performed: 12/06/2017 Time Performed: 05:26:26 PTAGE: 42 years EKG: Sinus rhythm . Low QRS voltages in limb leads Borderline ECG PREVIOUS TRACING : 07/31/2017 18.47 Since the previous tracing, no significant change noted DOCTOR: Tramaine Lawson Interpretating Date/Time 12/08/2017 12:17:56
== END 2017-12-07 14:25 | disposition home or self-care (01) | DRG 377 ==
LOC: NEPE 19:30 → NEDA 12-05 04:07 → N06A 12-05 15:32 → OBSVTOIN 12-06 15:21
PROVIDERS: ADMIT Internal Medicine; ATTEND Internal Medicine
PROC: 30233N1 Transfusion of Nonautologous Red Blood Cells into Peripheral Vein, Percutaneous Approach (ICD-10-PCS; 2017-12-05)
PROC: 0DB38ZX Excision of Lower Esophagus, Via Natural or Artificial Opening Endoscopic, Diagnostic (ICD-10-PCS; 2017-12-06)
PROC: 0DJD8ZZ Inspection of Lower Intestinal Tract, Via Natural or Artificial Opening Endoscopic (ICD-10-PCS; 2017-12-06)
PROC: 5A1D70Z Performance of Urinary Filtration, Intermittent, Less than 6 Hours Per Day (ICD-10-PCS; 2017-12-06)
PROC: 0DB98ZX Excision of Duodenum, Via Natural or Artificial Opening Endoscopic, Diagnostic (ICD-10-PCS; principal; 2017-12-06 17:20)
PROC: 0DB78ZX Excision of Stomach, Pylorus, Via Natural or Artificial Opening Endoscopic, Diagnostic (ICD-10-PCS; 2017-12-06 17:20)
DX: K29.81 Duodenitis with bleeding (principal); N18.6 End stage renal disease; I13.2 Hypertensive heart and chronic kidney disease with heart failure and with stage 5 chronic kidney disease, or end stage renal disease; K57.31 Diverticulosis of large intestine without perforation or abscess with bleeding; Z68.41 Body mass index [BMI] 40.0-44.9, adult; K29.51 Unspecified chronic gastritis with bleeding; G62.9 Polyneuropathy, unspecified; E66.01 Morbid (severe) obesity due to excess calories; I50.9 Heart failure, unspecified; F32.9 Major depressive disorder, single episode, unspecified; Q63.9 Congenital malformation of kidney, unspecified; E89.2 Postprocedural hypoparathyroidism; K21.0 Gastro-esophageal reflux disease with esophagitis; D63.1 Anemia in chronic kidney disease; K64.8 Other hemorrhoids; E83.51 Hypocalcemia; G47.33 Obstructive sleep apnea (adult) (pediatric); G89.29 Other chronic pain; M54.9 Dorsalgia, unspecified; M79.643 Pain in unspecified hand; Z99.2 Dependence on renal dialysis
CPT/HCPCS: 36430; 80048; 80053; 82948; 83540; 83550; 84155; 85014; 85018; 85025; 85027; 85610; 86850; 86900; 86901; 86920; 88305; 88312; 90935; 93005; 96365; 96374; 96375; 96376; C9113; G0378; G8987-GP; G8988-GP; J0610; J1756; J2370; J2405; J7050; P9016; Q4081